=== PATIENT | female | born 1945 | race Caucasian/White ===

== ENCOUNTER 2016-06-03 13:38 | Inpatient (IN) | payer OTHER, MEDICARE ==
--- NOTE | 2016-06-03 14:38 | EDPHY ---
H & P Time Seen by Provider: 06/03/16 14:37 HPI/ROS: CHIEF COMPLAINT: Depression, here for ECT. HISTORY OF PRESENT ILLNESS: The patient is a 70-year-old female with a history of depression who presents from [place] to have ECT. She does not currently take anything for her depression and has not taken antidepressants for a few months as they did not work. Her depression symptoms have included sadness, crying, difficulty sleeping, and fatigue. She denies SI or HI. She denies recent sickness, cough, fever, vomiting. REVIEW OF SYSTEMS: A complete 10-point review of systems was performed and is negative except for those items mentioned in the HPI. Past Medical/Surgical History: Depression, spinal stenosis. Social History: Nonsmoker. Smoking Status: Never smoked Physical Exam: General Appearance: Alert, no distress Eyes: Pupils equal and round, no conjunctival pallor or injection ENT, Mouth: Mucous membranes moist Neck: Normal inspection Respiratory: Lungs are clear to auscultation Cardiovascular: Regular rate and rhythm Gastrointestinal: Abdomen is soft and non- tender Neurological: A&O, nonfocal, normal gait Skin: Warm and dry, no rash Extremities: Nontender, no pedal edema Psychiatric: Mood and affect normal Constitutional: Initial Vital Signs Temperature (C) 36.9 C 06/03/16 14:01 Heart Rate 93 06/03/16 14:01 Respiratory Rate 18 06/03/16 14:01 Blood Pressure 105/94 H 06/03/16 14:01 O2 Sat (%) 92 06/03/16 14:01 O2 Delivery Mode Room Air Allergies/Adverse Reactions: aripiprazole [From Abilify] Allergy (Verified 06/03/16 14:00) latex [Latex] Allergy (Verified 06/03/16 13:42) povidone-iodine [From Betadine] Allergy (Verified 06/03/16 13:42) soap [From Betadine] Allergy (Verified 06/03/16 13:42) Home Medications: Medication Instructions Recorded traZODone [traZODone 150MG (*)] 37.5 mg PO HS PRN 02/08/10 ARIPiprazole [Abilify 5 mg (*)] 5 mg PO DAILY 06/03/16 Fluticasone Nasal [Flonase Nasal 1 sprays NASAL DAILY 06/03/16 [place] (RX)] Hydrocodone/Acetaminophen [[place] 1 - 2 tab PO Q2-3PRN PRN 06/03/16 5/325 (*)] Medical Decision Making ED Course/Re-evaluation: An IV was established and labs ordered. EKG ordered. The patient has been accepted to and will be transferred when she is medically cleared. 1620: Patient medically cleared for psych evaluation. Differential Diagnosis: Differential diagnosis includes though it is not limited to suicidal ideation, overdose, acute psychosis, self-injury, alcohol withdrawal. - Data Points Laboratory Results: Laboratory Results 06/03/16 14:35 06/03/16 14:35 06/03/16 06/03/16 15:40 14:35 WBC 9.03 10^3/uL (3.80-9.50) RBC 4.85 10^6/uL (4.18-5.33) Hgb 15.6 g/dL (12.6-16.3) Hct 45.8 % (38.0-47.0) MCV 94.4 fL (81.5-99.8) MCH 32.2 pg (27.9-34.1) MCHC 34.1 g/dL (32.4-36.7) RDW 13.4 % (11.5-15.2) Plt Count 297 10^3/uL (150-400) MPV 9.3 fL (8.7-11.7) Neut % (Auto) 71.4 % (39.3-74.2) Lymph % (Auto) 17.7 % (15.0-45.0) [place] % (Auto) 7.9 % (4.5-13.0) Eos % (Auto) 1.3 % (0.6-7.6) Baso % (Auto) 0.8 % (0.3-1.7) Nucleat RBC Rel Count 0.0 % (0.0-0.2) Absolute Neuts (auto) 6.45 10^3/uL (1.70-6.50) Absolute Lymphs (auto) 1.60 10^3/uL (1.00-3.00) Absolute Monos (auto) 0.71 10^3/uL (0.30-0.80) Absolute Eos (auto) 0.12 10^3/uL (0.03-0.40) Absolute Basos (auto) 0.07 10^3/uL (0.02-0.10) Absolute Nucleated RBC 0.00 10^3/uL (0-0.01) Immature Gran % 0.9 % (0.0-1.1) Immature Gran # 0.08 10^3/uL (0.00-0.10) Sodium 145 H mEq/L (134-144) Potassium 4.1 mEq/L (3.5-5.2) Chloride 111 H mEq/L (97-110) Carbon Dioxide 22 mEq/l (22-31) Anion Gap 12 mEq/L (8-16) BUN 14 mg/dL (7-23) Creatinine 0.6 mg/dL (0.6-1.0) Estimated GFR > 60 Glucose 124 H mg/dL (70-100) Calcium 9.4 mg/dL (8.5-10.4) Urine Opiates Screen NEGATIVE (NEGATIVE) Urine Barbiturates NEGATIVE (NEGATIVE) Ur Phencyclidine Scrn NEGATIVE (NEGATIVE) Ur Amphetamine Screen NEGATIVE (NEGATIVE) U Benzodiazepines Scrn NON-NEGATIVE H (NEGATIVE) Urine Cocaine Screen NEGATIVE (NEGATIVE) U Marijuana (THC) Screen NEGATIVE (NEGATIVE) Ethyl Alcohol 10 mg/dL (0-10) Departure - Departure Disposition: [facility] IP Clinical Impression: Depression Qualifiers: Depression Type: unspecified Qualifier Code: (F32.9) Major depressive disorder , single episode, unspecified Condition: Fair Report Scribed for: Patti Domingo Report Scribed by: Seven Velasquez Date of Report: 06/03/16 Time of Report: 14:38 Physician Review and Approval Statement: 06/03/16 14:38 Portions of this note were transcribed by a biomedical specialist. I personally performed a history, physical exam, medical decision making, and confirmed accuracy of information the transcribed note.
[2016-06-03 14:53] LABS: % IMMATURE GRANULYOCYTES 0.9 % (0.0-1.1); ABSOLUTE IMMATURE GRANULOCYTES 0.08 10^3/uL (0.00-0.10); ADD DIFF? NO; ADD MORPH? NO; ADD SCAN? NO; ATYPICAL LYMPHOCYTE FLAG 0 (0-99); FRAGMENT RBC FLAG 0 (0-99); HEMATOCRIT 45.8 % (38.0-47.0); HEMOGLOBIN 15.6 g/dL (12.6-16.3); LEFT SHIFT FLG 0 (0-99); LIPEMIA HEMOLYSIS FLAG 90 (0-99); MEAN CELL HEMOGLOBIN 32.2 pg (27.9-34.1); MEAN CELL HEMOGLOBIN CONCENTR. 34.1 g/dL (32.4-36.7); MEAN CELL VOLUME 94.4 fL (81.5-99.8); MEAN PLATELET VOLUME 9.3 fL (8.7-11.7); PLATELET CLUMPS FLAG 0 (0-99); PLATELET COUNT 297 10^3/uL (150-400); RED BLOOD CELL COUNT 4.85 10^6/uL (4.18-5.33); RED CELL DISTRIBUTION WIDTH 13.4 % (11.5-15.2)
[2016-06-03 15:19] LABS: ANION GAP 12 mEq/L (8-16); CALCIUM 9.4 mg/dL (8.5-10.4); CARBON DIOXIDE 22 mEq/l (22-31); CHLORIDE 111 mEq/L (97-110); CREATININE 0.6 mg/dL (0.6-1.0); ETHANOL SERUM 10 mg/dL (0-10); GLOMERULAR FILTRATION RATE > 60; GLUCOSE 124 mg/dL (70-100); POTASSIUM 4.1 mEq/L (3.5-5.2); SODIUM 145 mEq/L (134-144)
--- NOTE | 2016-06-03 15:21 | CPEKG ---
Heart Rate: 88 RR Interval: 682 P-R Interval: 184 QRSD Interval: 96 QT Interval: 388 QTC Interval: 470 P [place]: 49 QRS [place]: 11 T Wave [place]: 46 EKG Severity - NORMAL ECG - EKG Impression: SINUS RHYTHM Electronically Signed By: Patti Domingo 03-Jun-2016 21:24:02
[2016-06-03] MEDS ORDERED: MAGNESIUM HYDROXIDE 30 ML UDCUP PO PRN (20:55)
[2016-06-03] MEDS ORDERED: MAG HYDROX/AL HYDROX/SIMETH 30 ML UDCUP PO PRN (20:55)
[2016-06-03] MEDS ORDERED: HYDROCODONE/APAP 5/325 TAB PO PRN (20:56)
[2016-06-03] MEDS ORDERED: traZODone 50 MG TAB PO PRN (20:56)
[2016-06-03] MEDS: FLUTICASONE NASAL 120 SPRAYS/16 GM MDI EACHNARE SCH (21:39)
[2016-06-03] MEDS ORDERED: traZODone 50 MG TAB PO ONE (23:30)
[2016-06-04] MEDS: FLUTICASONE NASAL 120 SPRAYS/16 GM MDI EACHNARE SCH (08:29)
[2016-06-04] MEDS: LORazepam 0.5 MG TAB PO PRN ×2 (11:16→14:48)
[2016-06-04] MEDS: ACETAMINOPHEN 325 MG TAB PO PRN (15:43)
--- NOTE | 2016-06-04 18:00 | BCON ---
[f rep st] BEHAVIORAL HEALTH CONSULTATION INTERNAL MEDICINE CONSULTATION DATE OF CONSULTATION: 06/04/2016 REFERRING PHYSICIAN: Edgar Bonilla MD REASON FOR CONSULTATION: Medical clearance for inpatient behavioral health stay. HISTORY OF PRESENT ILLNESS: Mrs. Duarn has come from [place] for electroconvulsive therapy to treat depression, which has been refractory to medications. She currently complains of neck and shoulder pain, and reports a history of cervical spinal stenosis and surgery approximately 2 months ago. She reports [place], which she has been taking, was ineffective for pain control and is hoping that there is something stronger. Otherwise, she has no acute medical complaints. PAST MEDICAL HISTORY: 1. Depression, refractory to medications. 2. Cervical spinal stenosis. 3. Right leg fractures due to a fall from a chair. 4. History of a knee fracture. PAST SURGICAL HISTORY: She had surgery for cervical spinal stenosis approximately 2 months ago and she has had a surgical repair of the right lower extremity. MEDICATIONS: 1. Hydrocodone/acetaminophen 5/325, 1-2 tabs p.o. q.2-3 hours p.r.n. 2. Fluticasone 1 spray each naris daily. 3. Trazodone 37.5 mg p.o. q.h.s. p.r.n. ALLERGIES: Listed to aripiprazole, latex, and povidone iodine. SOCIAL HISTORY: She is . She lives with her . She has 3 children, including a son in [place], and 2 other children in [place]. She comes from [place]. 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 She is a nonsmoker and uses occasional alcohol. FAMILY HISTORY: Noncontributory. REVIEW OF SYSTEMS: She denies cough or dyspnea, fevers chills, nausea, vomiting , diarrhea, diarrhea, and no constipation despite pain medicine with opiates. She denies dysuria. Pain is as described in the HPI and otherwise, a 10-point review of systems is negative. PHYSICAL EXAM: VITAL SIGNS: Blood pressure is 159/72. Earlier on when she first arrived, it was 105/94 and subsequently, 110/84. These were yesterday and then yesterday evening 164/92. Heart rate is 90, respiratory rate is 16, oxygen saturation is 90% on room air, temperature is 36.6 degrees centigrade. Her weight is 61.2 kg for a body mass index of 23.9. GENERAL: This is a well- nourished, well-developed woman appears her chronologic age, cooperative, and in no acute distress. HEENT: Extraocular movements are intact. Pupils are equal, round, and reactive to light. Mucous membranes are moist. Dentition is in good condition. NECK: Supple. HEART: There is a regular rate and rhythm with no murmurs, rubs, or gallops. LUNGS: Clear to auscultation bilaterally. ABDOMEN: Soft, nontender, nondistended with normoactive bowel sounds. EXTREMITIES: There is no cyanosis, clubbing, or edema. She is tender over the right trapezius close to the spine. NEUROLOGIC: She is alert. She is oriented to her location. She is disoriented to the month and the year, reporting the date as May 04, 2016. After reorientation, she is able to retain the date of June 04 however, she repeats 2015. Cranial nerves 2-12 are grossly intact. There is no focal weakness. Sensation is intact to light touch. Her gait is abnormal using a front-wheeled walker, wide-based and very slow with en bloc turning, but this might be due to her management of the walker. LABORATORY STUDIES: Drawn in the emergency room: CBC was completely within normal limits. Serum chemistry revealed a slightly high sodium at 145 and a slightly high chloride at 111. There was no significant anion gap. She potentially had some dehydration with a BUN to creatinine ratio being greater than 20. The BUN was 14 and the creatinine was 0.6. Serum glucose was elevated at 124, but this was likely not fasting. Toxicology screen in the serum was negative for ethyl alcohol, in the urine was non-negative for benzodiazepines, but otherwise negative for substances of abuse. IMAGING: EKG was obtained in the emergency department and it showed sinus rhythm with no abnormalities. ASSESSMENT AND RECOMMENDATIONS: 1. Mental health issues: Pending further evaluation and management presumably with electroconvulsive therapy per Psychiatry and the mental health team. 2. Osteoporosis: She reports a bone scan was consistent with osteopenia however, she had a low-level fall with multiple fractures, so she meets criteria for osteoporosis. She reports that she takes vitamin D. I have ordered a vitamin D supplement to be given, and I have advised her that she would likely benefit from medications to improve her bone strength. She can take this up with her primary care provider. It is very important that she avoid falling. 3. Abnormal gait: Physical Therapy evaluation has been ordered and this should also help to prevent falls. 4. Memory loss with disorientation as to date: She is about to undergo electroconvulsive therapy with likely worsening memory loss in the short-term period after therapies. Memory loss might also be due to her depression. Advised consideration of a Speech Therapy consult for cognitive evaluation. 5. Elevated blood pressure: Query whether this is related to pain or anxiety. Advise serial monitoring and would consider initiating antihypertensive therapy if her blood pressure remains elevated. A thiazide diuretic would be particularly appropriate in the setting of osteoporosis as it helps retain calcium. 6. Hypernatremia, mild, and possible dehydration. Observe for normal fluid intake. Will not repeat labs unless she is symptomatic. I see no medical contraindications to the patient's continued stay in the inpatient behavioral health unit, or to any psychiatric medications or procedures. Thank you very much for including me in the care of this patient, and please do not hesitate to contact me or the hospitalist service should there be need for further medical evaluation. /[id number]/MODL MTDD
--- NOTE | 2016-06-04 18:00 | BAPA ---
[f rep st] ADMISSION PSYCHIATRIC ASSESSMENT DATE OF SERVICE: 06/04/2016 CHIEF COMPLAINT: "I want to have ECT because nothing else has ever worked." HISTORY OF PRESENT ILLNESS: Patient is a 70-year-old, female, from [facility] who was brought over by her due to lack of responsiveness to her antidepressant treatment. She has a long history of treatment resistant depression dating over 50 years. During this time she states she has failed "every antidepressant there is." She is managed by Dr. Avendano in [facility], who was worked with her for some time and provides a letter of referral. He states that he has treated her since December of 2005 and that she has refractory depression. He notes significant functi onal disorder and impairment due to her symptoms and states that he attempted a course of TMS from to January of 2016 that was unsuccessful. She had some movement on her PHQ though overall mary nued to feel depressed. She received 31 treatments over approximately 6 weeks. Patient states that she believes her depression will never improve and notes primary neurovegetative dysfunction includin g poor energy and motivation feeling lethargic, excessive sleepiness both at nighttime and during the day alternating with some periods of relative insomnia. She notes feeling depressed more days than not and states "I am always sad, I can not do anything." She has frequent crying episodes and feels helpless and hopeless. She notes some variation in her overall functioning over time with periods du ring which she could be more active and possibly play tennis or bridge with friends or socialize but states that these are relatively brief and they are alternating with periods of severe depression whe re she will isolate more and sleep excessively. She states that she has been unable to properly atte nd her roles within her family for some time and questions whether she ever was adequately able to do this through her lifetime. She notes currently some memory dysfunction, stating that she is having trouble with recall but is adamant this is not her standard baseline. PAST PSYCHIATRIC HISTORY: Patient had multiple previous antidepressant trials including Prozac, Paxi l, Zoloft, Celexa, Lexapro, Effexor, Cymbalta, Pristiq, Lamictal, Remeron, Ritalin, Wellbutrin, Provi kathryn, lithium, Abilify, nortriptyline, and possibly amitriptyline. She has had psychotherapy off and on which she states has been helpful. She had the 31 TMS treatments as mentioned above. She has had 1 previous psychiatric hospitalization in 2003 in [place] due to increased depression and psyc hosocial stresses. She has had no previous suicide attempts. When asked about suicidality she state s "I do not think about that much." She does state however that she cannot imagine her life continui ng how it is. ALLERGIES: Abilify with a rash, latex and iodine. CURRENT MEDICATIONS: Trazodone 150 mg at h.s. Flonase nasal spray. Though it is unclear if she was recently taking Paxil or not. She believes not. She did list it on her paperwork [facility] She was also recently on Abilify though states that this caused her a rash and they discontinued it. PAST MEDICAL HISTORY: Significant for some fractures in her right lower leg about 2 years ago. She states that this affected her walking. She did not have surgery but has been dependent on a walker s vicky that time. She was told that she had a "low thyroid" in the past though states she has not been treated for several years. She denies any history of central nervous system disease including any b rain injuries or seizures. She reports no history of sleep apnea. PAST SURGICAL HISTORY: Patient had anterior cervical fusion 2 months ago and some remote spinal surg anette. SOCIAL HISTORY: Patient was born and raised in [place] and lived there most of her life. She mov ed to [place] with her 10 years ago to retire. She has been for over 50 years with 3 children. She has a daughter in [place], a daughter in [place], and a son who lives in [place]. She states that her son in [place] is a "drug addict and a lost soul." It is noted by her and also Dr. Avendano that the son's behaviors and difficulties are a frequent source of confl ict between the patient and her . Patient has a sister in [place] and a nephew who also tej es in [place]. She has a BA in history and Polish and a secondary education credential. 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 SUBSTANCE ABUSE HISTORY: Patient states she started drinking alcohol 10 years ago when she moved to [place] "because I was so miserable." She states she was drinking up to daily "too much." She repo rts quitting about a month ago. Denies any other history of drug use. FAMILY HISTORY: Father was an alcoholic and her mother was reportedly depressed. ADMISSION LABORATORY: CBC is normal. Serum chemistry shows sodium slightly up at 145, chloride of 1 11, nonfasting glucose up at 124, otherwise normal. TSH not drawn. Urine drug screen is positive fo r benzodiazepines and alcohol level was 10. MENTAL STATUS EXAMINATION: Reveals a marginally groomed, casually dressed, female. She in teracts well with the interviewer displaying good eye contact and overall calm and pleasant demeanor. She perhaps demonstrates a slight level of psychomotor retardation. Her affect is blunted, dysphor ic, stable, and appropriate. Her mood is described as "really depressed and sad." Her thought proce ss is linear and goal directed. Her thought content reveals no evidence of psychosis. She is alert and oriented to person, place, time, and situation and her sensorium is clear. She seems to have tro uble with some recall in her remote and intermediate memories. This is fairly unclear and inconsiste nt and she states that it is due to her trouble with attention and concentration, which she refers to her depression. There are no gross cognitive deficits noted. Her attention and concentration are a dequate to the conversation. Patient's intellect appears to be at least average as evidenced by her educational and occupational histories, fund of knowledge, and vocabulary. She denies any thoughts o f suicide. Her insight and judgment appear to be good. IMPRESSION: AXIS I: Major depressive disorder, recurrent, chronic with treatment resistant features . AXIS II: No diagnosis. AXIS III: No acute illnesses. AXIS IV: Chronic illness. Possible marital conflicts. Family conflicts. AXIS V: Currently 38. IMPRESSION AND PLAN: Patient is a 70-year-old, female, who presents for admission to be ev aluated for treatment resistant depression. She voices a desire to participate with ECT and her outp atient provider, Dr. Avendano, has also recommended this. I believe that she meets criteria for treat ment resistant depression and I find no absolute contraindications. She has a predominance of neurov egetative symptoms which are likely to respond and I believe the overall severity and long-term disab ility of her condition warrants treatment. I have discussed this with the patient. She states that she is motivated to begin ECT treatment as soon as possible. I am not satisfied that I have her abso lute current medication list and put a message into Dr. Avendano so we will clarify that prior to begi nning treatment. I have discussed with the patient that our main alternative to ECT at this time is ongoing medication management. Overall given her current severity of symptoms and her previous treatment responses I h ave indicated an approximately 16%-18% chance of reaching remission with further medication trials. I have also indicated a 55%-60% chance of remission with ECT. We discussed the course of ECT treatments including the acute course which is performed here at [facility] on a Friday, Friday, Friday basis. She understands the typical range of treat ments in the acute course is between 9 and 12 though this could be longer. She also understands that continuation treatment on a weekly basis is necessary to prevent immediate relapse, and longer-term maintenance therapy may be indicated depending on clinical course. She understands that there is no guarantee ECT will be effective. We discussed the extremely rare, rare, uncommon and common side effects with ECT including major risk s such as occurring in 1 in 10,000 and possible risks to the cardiovascular and central nervous systems. Side effects such as nausea, headaches and agitation were also discussed. Particular time was spent discussing transient and persistent cognitive side effects of ECT. Side effects such as a nterograde, retrograde and autobiographical memory deficiencies were reviewed. Specific focus was gi robert to her ongoing problems with attention, concentration, working memory, short-term memory, and kit n intermediate recall. I informed her that ECT effects these specific functions as well as in that t hey could worsen during treatment. I stated that overall I would expect them to improve through the course of treatment. Patient understands behavior restrictions requisite with ECT including n.p.o. requirements and time f rakel, 24 monitoring on treatment days, no driving during the acute phase of treatment or on any gamaliel tment day. She also states that she may do much of her acute course in the hospital. Patient is given a packet of ECT educational materials though states she has already reviewed them. She does take the pack and states she will re-review them. She will let me know if she has any quest ions. I was able to talk briefly with her this morning and he had no questions. /[id number]/MODL
[2016-06-05] MEDS ORDERED: CITRIC ACID/SODIUM CITRATE 30 ML UDCUP PO ONE (08:00)
[2016-06-05] MEDS ORDERED: LIDOCAINE 2% 5 ML SDV ID ONE (08:00)
[2016-06-05] MEDS ORDERED: ONDANSETRON DISINTEGRATING 4 MG TAB PO ONE (08:00)
[2016-06-05] MEDS ORDERED: NS 500 ML IV ONE (08:00)
[2016-06-05] MEDS: FLUTICASONE NASAL 120 SPRAYS/16 GM MDI EACHNARE SCH (08:22)
[2016-06-05] MEDS: CHOLECALCIFEROL VIT D3 2,000 UNITS TAB/CAP PO SCH (08:23)
[2016-06-05] MEDS ORDERED: ONDANSETRON DISINTEGRATING 4 MG TAB ONE (13:35)
[2016-06-05] MEDS ORDERED: CITRIC ACID/SODIUM CITRATE 30 ML UDCUP ONE (13:35)
[2016-06-05] MEDS ORDERED: fentaNYL 100 MCG/2 ML INJ ONE (13:58)
[2016-06-05] MEDS ORDERED: ETOMIDATE 20 MG/10 ML VIAL ONE (13:59)
[2016-06-05] MEDS ORDERED: SUCCINYLCHOLINE CHLORIDE 200 MG/10 ML VIAL ONE (13:59)
[2016-06-05] MEDS ORDERED: ROCURONIUM 50 MG/5 ML VIAL ONE (13:59)
[2016-06-05] MEDS ORDERED: KETOROLAC 30 MG/1 ML SDV ONE (13:59)
[2016-06-05] MEDS ORDERED: MIDAZOLAM 2 MG/2 ML VIAL ONE (13:59)
[2016-06-05] MEDS ORDERED: ONDANSETRON 4 MG/2 ML VIAL ONE (13:59)
[2016-06-05] MEDS ORDERED: GLYCOPYRROLATE 0.2 MG/1 ML VIAL ONE (13:59)
--- NOTE | 2016-06-05 21:40 | SOAPPROG ---
SOAP Progress Note Assessment/Plan: Assessment: Plan: 06/05/16 21:40 Good first treatment. Some respiratory issues. Will pierre. Subjective: Pt seen, discussed with staff. I answered her questions re: ECT. Underwent bilateral treatment with good organization, morphology, amplitude and duration. No initial complications. She was slow to wake up and was unable to maintain sats >90% on RA. Dr. Oroczo evaluated pt and referred to ED for further eval due to wheezing. CXR reportedly nl. Sats nl in ED. Returned to 3N. Objective: Vital Signs Temp Pulse Resp BP Pulse Ox 36.5 C 83 14 135/70 H 91 L 06/05/16 21:14 06/05/16 21:14 06/05/16 21:14 06/05/16 21:14 06/05/16 21:14 MSE: Anxious, but approp. Affect o/w constricted, stable. Mood "depressed." TP linear. TC reveals no psychosis. - Time Spent With Patient Time Spent With Patient: 45" - Pending Discharge Pending Discharge Within 24 Hours: No Pending Discharge Within 48 Hours: No ICD10 Worksheet Patient Problems: Problems Problem Status Diagnosed Depression Acute Hypoxia Acute
[2016-06-06] MEDS ORDERED: IBUPROFEN 800 MG TAB PO ONE (01:00)
[2016-06-06] MEDS: LORazepam 0.5 MG TAB PO PRN (04:52)
[2016-06-06] MEDS: FLUTICASONE NASAL 120 SPRAYS/16 GM MDI EACHNARE SCH (08:29)
[2016-06-06] MEDS: CHOLECALCIFEROL VIT D3 2,000 UNITS TAB/CAP PO SCH (08:30)
[2016-06-06] MEDS: LORazepam 1 MG TAB PO PRN ×2 (13:17→17:41)
--- NOTE | 2016-06-07 00:37 | SOAPPROG ---
SOAP Progress Note Assessment/Plan: Assessment: Plan: 06/05/16 21:40 Good first treatment. Some respiratory issues. Will montor. 06/07/16 00:36 Remains depressed. Tolerating ECT well. CCM. Subjective: LATE ENTRY FOR 06/06/16 Pt seen, discussed with staff. Sats low after treatment yesterday, w/u negative in ED. No c/o's despite need for O2 overnight. Some h/a resolved with ibuprofen. Upbeat and hopeful. Objective: Vital Signs Temp Pulse Resp BP Pulse Ox 36.4 C 80 16 120/65 90 L 06/06/16 00:54 06/06/16 10:40 06/06/16 00:54 06/06/16 00:54 06/06/16 10:40 MSE: Calm, coop. Affect is bright, stable, approp. Mood is "depressed." TP linear. TC reveals no psychosis. - Time Spent With Patient Time Spent With Patient: 15" - Pending Discharge Pending Discharge Within 24 Hours: No Pending Discharge Within 48 Hours: No ICD10 Worksheet Patient Problems: Problems Problem Status Diagnosed Depression Acute
[2016-06-07] MEDS ORDERED: THEOPHYLLINE ORAL SOLUTION 80 MG/15 ML UDCUP PO ONE (04:00)
[2016-06-07] MEDS ORDERED: CITRIC ACID/SODIUM CITRATE 30 ML UDCUP PO ONE (04:00)
[2016-06-07] MEDS ORDERED: LIDOCAINE 2% 5 ML SDV ID ONE (04:00)
[2016-06-07] MEDS ORDERED: ONDANSETRON DISINTEGRATING 4 MG TAB PO ONE (04:00)
[2016-06-07] MEDS ORDERED: NS 500 ML IV ONE (04:00)
[2016-06-07] MEDS ORDERED: fentaNYL 100 MCG/2 ML INJ ONE (05:08)
[2016-06-07] MEDS ORDERED: ONDANSETRON 4 MG/2 ML VIAL ONE (05:09)
[2016-06-07] MEDS ORDERED: SUCCINYLCHOLINE CHLORIDE 200 MG/10 ML VIAL ONE (05:09)
[2016-06-07] MEDS ORDERED: ROCURONIUM 50 MG/5 ML VIAL ONE (05:09)
[2016-06-07] MEDS ORDERED: GLYCOPYRROLATE 0.2 MG/1 ML VIAL ONE (05:09)
[2016-06-07] MEDS ORDERED: KETOROLAC 30 MG/1 ML SDV ONE (05:09)
[2016-06-07] MEDS ORDERED: ETOMIDATE 20 MG/10 ML VIAL ONE (05:09)
[2016-06-07] MEDS ORDERED: MIDAZOLAM 2 MG/2 ML VIAL ONE (05:09)
[2016-06-07] MEDS ORDERED: CITRIC ACID/SODIUM CITRATE 30 ML UDCUP ONE (06:06)
[2016-06-07] MEDS ORDERED: ONDANSETRON DISINTEGRATING 4 MG TAB ONE (06:06)
[2016-06-07] MEDS: FLUTICASONE NASAL 120 SPRAYS/16 GM MDI EACHNARE SCH (10:11)
[2016-06-07] MEDS: CHOLECALCIFEROL VIT D3 2,000 UNITS TAB/CAP PO SCH (10:11)
--- NOTE | 2016-06-07 14:17 | SOAPPROG ---
SOAP Progress Note Assessment/Plan: Assessment: Plan: 06/05/16 21:40 Good first treatment. Some respiratory issues. Will montor. 06/07/16 00:36 Remains depressed. Tolerating ECT well. CCM. 06/07/16 14:18 Tolerating treatments well. CCM. Subjective: Pt seen, discussed with staff. Reports feeling "about the same." H/a and nausea were less after last treatment. Mood remains low. She underwent bilateral ECT this morning without complication. O2 sats on RA were 86% before treatment. Objective: Vital Signs Temp Pulse Resp BP Pulse Ox 36.6 C 70 14 144/72 H 92 06/07/16 10:45 06/07/16 10:45 06/07/16 10:45 06/07/16 10:45 06/07/16 10:45 MSE: Calm, coop. Affect is blunted, stable. Mood is "depressed." TP linear. TC reveals no psychosis. A&Ox4. Cognition unchanged. - Time Spent With Patient Time Spent With Patient: 35" - Pending Discharge Pending Discharge Within 24 Hours: No Pending Discharge Within 48 Hours: No ICD10 Worksheet Patient Problems: Problems Problem Status Diagnosed Depression Acute
[2016-06-07] MEDS: oxyCODONE IR 5 MG TAB PO PRN (15:45)
[2016-06-08] MEDS: LORazepam 1 MG TAB PO PRN ×2 (04:15→14:59)
[2016-06-08] MEDS: CHOLECALCIFEROL VIT D3 2,000 UNITS TAB/CAP PO SCH (08:19)
[2016-06-08] MEDS: FLUTICASONE NASAL 120 SPRAYS/16 GM MDI EACHNARE SCH (08:19)
--- NOTE | 2016-06-08 11:08 | SOAPPROG ---
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 She has had 2 treatments so far. Plan:add prn Trazedone for middle insomnia con't other meds ECT 06/10/16 06/08/16 11:05 Subjective: "Tired. I couldn't get back to sleep last night." Objective: Vital Signs Temp Pulse Resp BP Pulse Ox 36.8 C 66 12 142/77 H 92 06/08/16 04:32 06/08/16 04:32 06/08/16 04:32 06/08/16 04:32 06/08/16 04:32 Pt is A+O x4 using walker mood-"tired" affect-appr thoughts-logical speech-wnl +middle insomnia appetite-good no S/H I no A/V H no sx psychosis/se no SASCHA memory-fair I/J-good - Time Spent With Patient Time Spent With Patient: 20' - Pending Discharge Pending Discharge Within 24 Hours: No Pending Discharge Within 48 Hours: No ICD10 Worksheet Patient Problems: Problems Problem Status Diagnosed Depression Acute
[2016-06-09] MEDS: CHOLECALCIFEROL VIT D3 2,000 UNITS TAB/CAP PO SCH (08:55)
[2016-06-09] MEDS: FLUTICASONE NASAL 120 SPRAYS/16 GM MDI EACHNARE SCH (08:55)
[2016-06-09] MEDS: LORazepam 1 MG TAB PO PRN (09:00)
[2016-06-09] MEDS: oxyCODONE IR 5 MG TAB PO PRN (10:35)
--- NOTE | 2016-06-09 11:05 | SOAPPROG ---
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 She has had 2 treatments so far. 06/09/16-pt had explosive diarrhea this am and needed extra pain med-now feeling better but c/o feeling "tired" Plan:added prn Trazedone for middle insomnia con't other meds ECT 06/10/16 06/09/16 12:14 Subjective: "Tired." Objective: Vital Signs Temp Pulse Resp BP Pulse Ox 36.3 C 69 14 138/76 H 91 L 06/09/16 06:14 06/09/16 06:14 06/09/16 06:14 06/09/16 06:14 06/09/16 06:14 Pt is A+O x4 mood-"tired" affect-appr no S/H I no A/V H thoughts-logical speech-wnl slept 8.5 hours no sx psychosis/se no SASCHA memory-fair I/J-good - Time Spent With Patient Time Spent With Patient: 20' - Pending Discharge Pending Discharge Within 24 Hours: No Pending Discharge Within 48 Hours: No ICD10 Worksheet Patient Problems: Problems Problem Status Diagnosed Depression Acute
[2016-06-10] MEDS ORDERED: MIDAZOLAM 2 MG/2 ML VIAL ONE (05:57)
[2016-06-10] MEDS ORDERED: fentaNYL 100 MCG/2 ML INJ ONE (05:57)
[2016-06-10] MEDS ORDERED: GLYCOPYRROLATE 0.2 MG/1 ML VIAL ONE (05:57)
[2016-06-10] MEDS ORDERED: ONDANSETRON 4 MG/2 ML VIAL ONE (05:57)
[2016-06-10] MEDS ORDERED: KETOROLAC 30 MG/1 ML SDV ONE (05:57)
[2016-06-10] MEDS ORDERED: PROPOFOL 200 MG/20 ML VIAL ONE (05:58)
[2016-06-10] MEDS ORDERED: SUCCINYLCHOLINE CHLORIDE 200 MG/10 ML VIAL ONE (05:58)
[2016-06-10] MEDS ORDERED: ETOMIDATE 20 MG/10 ML VIAL ONE (05:58)
[2016-06-10] MEDS ORDERED: ROCURONIUM 50 MG/5 ML VIAL ONE (05:58)
[2016-06-10] MEDS ORDERED: ONDANSETRON DISINTEGRATING 4 MG TAB ONE (07:32)
[2016-06-10] MEDS ORDERED: CITRIC ACID/SODIUM CITRATE 30 ML UDCUP ONE (07:32)
[2016-06-10] MEDS ORDERED: ONDANSETRON DISINTEGRATING 4 MG TAB PO PRN (08:10)
--- NOTE | 2016-06-10 08:17 | SOAPPROG ---
SOAP Progress Note Assessment/Plan: Assessment: MDD (treatment resistant), Plan: Covering for Dr Bonilla just today. Reviewed MD, RN AND CC notes, labs, and H and P. s/p ECT #3 today with nice decline in mccarthy score to 21 from 39. However , pt has little subjective appreciation of change. Able to smile and make adequate eye contact, yet impov. in speech and with constricted affect. APpears to have STM issues, not recalling Dr Orozco. Insight seems impaired. Will check organic labs given her age and cognition issues: B12, folate, MTHFR, TSH, 25-OH Vit D. Also, pt does have O2 sats in the low 90s, history of snoring and other symptoms that could be c/w ANNALISA (but of course also c/w her depression itself.) Will ask for RT consult and bedside pulsoximetry. COnt acute bilateral ECT. Ketamine discussed with pt as she was astute enough to ask whether or not we were using it for her. 06/10/16 08:11 Objective: Vital Signs Temp Pulse Resp BP Pulse Ox 36.4 C 70 14 113/66 92 06/10/16 06:44 06/10/16 06:44 06/10/16 06:44 06/10/16 06:44 06/10/16 06:44 Laboratory Tests 06/03/16 06/03/16 14:35 15:40 Hct 45.8 Calcium 9.4 U Benzodiazepines Scrn NON-NEGATIVE H ICD10 Worksheet Patient Problems: Problems Problem Status Diagnosed Depression Acute
[2016-06-10] MEDS: FLUTICASONE NASAL 120 SPRAYS/16 GM MDI EACHNARE SCH (10:14)
[2016-06-10] MEDS: CHOLECALCIFEROL VIT D3 2,000 UNITS TAB/CAP PO SCH (10:14)
[2016-06-11 03:22] LABS: FOLATE SERUM 7.95 ng/mL (2.80 - >20.00)
[2016-06-11] MEDS: oxyCODONE IR 5 MG TAB PO PRN (06:01)
[2016-06-11] MEDS: CHOLECALCIFEROL VIT D3 2,000 UNITS TAB/CAP PO SCH (08:57)
[2016-06-11] MEDS: FLUTICASONE NASAL 120 SPRAYS/16 GM MDI EACHNARE SCH (08:57)
--- NOTE | 2016-06-11 11:11 | SOAPPROG ---
SOAP Progress Note Assessment/Plan: Assessment: Plan: 06/05/16 21:40 Good first treatment. Some respiratory issues. Will montor. 06/07/16 00:36 Remains depressed. Tolerating ECT well. CCM. 06/07/16 14:18 Tolerating treatments well. CCM. 06/11/16 11:10 Objective improvement exceeds subjective which is common. CCM. Subjective: Pt seen, discussed with staff, chart reviewed. Dr. Corea's input appreciated. Labs all nl thus far. Pt reports little subjective improvement in early acute course though staff note objective improvement. Tolerating treatments well. Objective: Vital Signs Temp Pulse Resp BP Pulse Ox 36.5 C 78 14 149/78 H 90 L 06/11/16 06:00 06/11/16 06:00 06/11/16 06:00 06/11/16 06:00 06/11/16 06:00 MSE: Calm, coop. Up in [place] with walker. Affect is brighter, smiling. Mood is "depressed." TP linear. TC reveals no psychosis. A&Ox4. - Time Spent With Patient Time Spent With Patient: 35" - Pending Discharge Pending Discharge Within 24 Hours: No Pending Discharge Within 48 Hours: No ICD10 Worksheet Patient Problems: Problems Problem Status Diagnosed Depression Acute
[2016-06-11 12:36] LABS: VITAMIN D 25-HYDROXY TOTAL 22.6 ng/mL (30-100)
[2016-06-12] MEDS: traZODone 100 MG TAB PO PRN (02:13)
[2016-06-12] MEDS ORDERED: NS 500 ML IV ONE (04:00)
[2016-06-12] MEDS ORDERED: LIDOCAINE 2% 5 ML SDV ID ONE (04:00)
[2016-06-12] MEDS ORDERED: CITRIC ACID/SODIUM CITRATE 30 ML UDCUP PO ONE (04:00)
[2016-06-12] MEDS ORDERED: ONDANSETRON DISINTEGRATING 4 MG TAB PO ONE (04:00)
[2016-06-12] MEDS ORDERED: MIDAZOLAM 2 MG/2 ML VIAL ONE (04:50)
[2016-06-12] MEDS ORDERED: GLYCOPYRROLATE 0.2 MG/1 ML VIAL ONE (04:50)
[2016-06-12] MEDS ORDERED: KETOROLAC 30 MG/1 ML SDV ONE (04:50)
[2016-06-12] MEDS ORDERED: ONDANSETRON 4 MG/2 ML VIAL ONE (04:50)
[2016-06-12] MEDS ORDERED: fentaNYL 100 MCG/2 ML INJ ONE (04:50)
[2016-06-12] MEDS ORDERED: SUCCINYLCHOLINE CHLORIDE 200 MG/10 ML VIAL ONE (04:51)
[2016-06-12] MEDS ORDERED: ROCURONIUM 50 MG/5 ML VIAL ONE (04:51)
[2016-06-12] MEDS ORDERED: ETOMIDATE 20 MG/10 ML VIAL ONE (04:51)
[2016-06-12] MEDS ORDERED: THEOPHYLLINE ORAL SOLUTION 80 MG/15 ML UDCUP PO ONE (05:30)
[2016-06-12] MEDS ORDERED: ONDANSETRON DISINTEGRATING 4 MG TAB ONE (06:12)
[2016-06-12] MEDS ORDERED: CITRIC ACID/SODIUM CITRATE 30 ML UDCUP ONE (06:12)
[2016-06-12] MEDS: FLUTICASONE NASAL 120 SPRAYS/16 GM MDI EACHNARE SCH (09:01)
[2016-06-12] MEDS: CHOLECALCIFEROL VIT D3 2,000 UNITS TAB/CAP PO SCH (09:02)
--- NOTE | 2016-06-12 12:34 | SOAPPROG ---
SOAP Progress Note Assessment/Plan: Assessment: Plan: 06/05/16 21:40 Good first treatment. Some respiratory issues. Will chepeor. 06/07/16 00:36 Remains depressed. Tolerating ECT well. CCM. 06/07/16 14:18 Tolerating treatments well. CCM. 06/11/16 11:10 Objective improvement exceeds subjective which is common. CCM. 06/12/16 12:33 Continued gradual improvement. CCM. Subjective: Pt seen, discussed with staff. Reports feeling "about the same." Mood remains flat and she continues to c/o poor E/M. Underwent bilateral ECT this morning with good seizure and no complications. Objective: Vital Signs Temp Pulse Resp BP Pulse Ox 36.5 C 73 16 180/94 H 90 L 06/12/16 08:24 06/12/16 08:24 06/12/16 07:50 06/12/16 08:24 06/12/16 08:46 MSE: Calm, coop. Affect is brighter, smiling frequently. Mood is "depressed, no different." TP linear. TC reveals no psychosis. - Time Spent With Patient Time Spent With Patient: 35" - Pending Discharge Pending Discharge Within 24 Hours: No Pending Discharge Within 48 Hours: No ICD10 Worksheet Patient Problems: Problems Problem Status Diagnosed Depression Acute
[2016-06-12] MEDS: LORazepam 1 MG TAB PO PRN ×2 (15:32→20:48)
[2016-06-13] MEDS: CHOLECALCIFEROL VIT D3 2,000 UNITS TAB/CAP PO SCH (08:30)
[2016-06-13] MEDS: FLUTICASONE NASAL 120 SPRAYS/16 GM MDI EACHNARE SCH (08:31)
[2016-06-13] MEDS: LORazepam 1 MG TAB PO PRN (11:37)
[2016-06-13] MEDS ORDERED: LIDOCAINE 2% 5 ML SDV ID ONE (11:41)
[2016-06-13] MEDS ORDERED: CITRIC ACID/SODIUM CITRATE 30 ML UDCUP PO ONE (11:41)
[2016-06-13] MEDS ORDERED: NS 500 ML IV ONE (11:41)
[2016-06-13] MEDS ORDERED: ONDANSETRON DISINTEGRATING 4 MG TAB PO ONE (11:41)
--- NOTE | 2016-06-13 11:54 | SOAPPROG ---
SOAP Progress Note Assessment/Plan: Assessment: Plan: 06/05/16 21:40 Good first treatment. Some respiratory issues. Will chepeor. 06/07/16 00:36 Remains depressed. Tolerating ECT well. CCM. 06/07/16 14:18 Tolerating treatments well. CCM. 06/11/16 11:10 Objective improvement exceeds subjective which is common. CCM. 06/12/16 12:33 Continued gradual improvement. [facility]. 06/13/16 11:55 Continued objective improvement. CCM. Will discuss potential antidepressants with Dr. Avendano. Subjective: Pt seen, discussed with staff. Reports feeling "about the same." Mood remains low. C/o poor energy and motivation. Requests to restart an antidepressant. Objective: Vital Signs Temp Pulse Resp BP Pulse Ox 36.6 C 71 12 154/71 H 92 06/13/16 06:00 06/13/16 06:00 06/13/16 06:00 06/13/16 06:00 06/13/16 06:00 MSE: Calm, coop. Affect is blunted, stable. Mood is "depressed." TP linear. TC reveals no psychosis. A&Ox4. A/C are adequate to interview. - Time Spent With Patient Time Spent With Patient: 35" - Pending Discharge Pending Discharge Within 24 Hours: No Pending Discharge Within 48 Hours: No ICD10 Worksheet Patient Problems: Problems Problem Status Diagnosed Depression Acute
[2016-06-14] MEDS ORDERED: MIDAZOLAM 2 MG/2 ML VIAL ONE (04:51)
[2016-06-14] MEDS ORDERED: fentaNYL 100 MCG/2 ML INJ ONE (04:51)
[2016-06-14] MEDS ORDERED: GLYCOPYRROLATE 0.2 MG/1 ML VIAL ONE (04:51)
[2016-06-14] MEDS ORDERED: KETOROLAC 30 MG/1 ML SDV ONE (04:51)
[2016-06-14] MEDS ORDERED: SUCCINYLCHOLINE CHLORIDE 200 MG/10 ML VIAL ONE (04:52)
[2016-06-14] MEDS ORDERED: ETOMIDATE 20 MG/10 ML VIAL ONE (04:52)
[2016-06-14] MEDS ORDERED: ROCURONIUM 50 MG/5 ML VIAL ONE (04:52)
[2016-06-14] MEDS ORDERED: ONDANSETRON 4 MG/2 ML VIAL ONE (04:52)
[2016-06-14] MEDS ORDERED: CITRIC ACID/SODIUM CITRATE 30 ML UDCUP ONE (06:51)
[2016-06-14] MEDS ORDERED: ONDANSETRON DISINTEGRATING 4 MG TAB ONE (06:51)
[2016-06-14] MEDS ORDERED: LIDOCAINE 2% 5 ML SDV ID ONE (07:00)
[2016-06-14] MEDS ORDERED: ONDANSETRON DISINTEGRATING 4 MG TAB PO ONE (07:00)
[2016-06-14] MEDS ORDERED: NS 500 ML IV ONE (07:00)
[2016-06-14] MEDS ORDERED: CITRIC ACID/SODIUM CITRATE 30 ML UDCUP PO ONE (07:00)
[2016-06-14] MEDS: CHOLECALCIFEROL VIT D3 2,000 UNITS TAB/CAP PO SCH (10:05)
[2016-06-14] MEDS: FLUTICASONE NASAL 120 SPRAYS/16 GM MDI EACHNARE SCH (10:06)
[2016-06-14 12:38] LABS: INTERPRETATION See Comments (())
[2016-06-15] MEDS: traZODone 100 MG TAB PO PRN (03:57)
[2016-06-15] MEDS: CHOLECALCIFEROL VIT D3 2,000 UNITS TAB/CAP PO SCH (08:35)
[2016-06-15] MEDS: FLUTICASONE NASAL 120 SPRAYS/16 GM MDI EACHNARE SCH (08:36)
--- NOTE | 2016-06-15 10:14 | SOAPPROG ---
SOAP Progress Note Assessment/Plan: Assessment: Plan: 06/05/16 21:40 Good first treatment. Some respiratory issues. Will montor. 06/07/16 00:36 Remains depressed. Tolerating ECT well. CCM. 06/07/16 14:18 Tolerating treatments well. CCM. 06/11/16 11:10 Objective improvement exceeds subjective which is common. CCM. 06/12/16 12:33 Continued gradual improvement. CCM. 06/13/16 11:55 Continued objective improvement. CCM. Will discuss potential antidepressants with Dr. Avendano. 06/15/16 10:13 Gradual improvement. Will proceed with Effexor. O/w CCM. Subjective: LATE ENTRY FOR 06/14/16 Pt seen, discussed with staff. Reports no subjective improvement thus far. Staff observes a brighter affect and more spontaneous interaction. Underwent bilateral ECT without complication. Objective: Vital Signs Temp Pulse Resp BP Pulse Ox 36.5 C 68 14 161/74 H 95 06/15/16 06:00 06/15/16 06:00 06/15/16 06:00 06/15/16 06:00 06/15/16 06:00 MSE: Calm, coop. Affect is blunted, but smiles approp. Mood is "depressed." TP linear. TC reveals no psychosis. - Time Spent With Patient Time Spent With Patient: 35" - Pending Discharge Pending Discharge Within 24 Hours: No Pending Discharge Within 48 Hours: No ICD10 Worksheet Patient Problems: Problems Problem Status Diagnosed Depression Acute
[2016-06-15] MEDS: VENLAFAXINE XR 75 MG CAP PO SCH (11:00)
[2016-06-15] MEDS: LORazepam 1 MG TAB PO PRN (19:34)
--- NOTE | 2016-06-15 19:36 | SOAPPROG ---
SOAP Progress Note Assessment/Plan: Assessment: 71yo F with depression, receiving ECT Plan: started on Effexor today cont ECT as scheduled incr trazodone 150mg hs to 200mg hs. change 100mg hs prn to 50mg hs prn would like to resume PT as had in past and try to eventually not need a walker 06/15/16 14:50 per staff, pt slept 6hr. used 100mg prn trazodone around 3am pt reports +depr, low E. glad to start Effexor as this had helped in past +chronic low level back pain, hx r leg broken, using walker reading a lot on unit. feels sleep is not good and wants incr trazodone as used to take. no other complaints casually dressed, calm, cooperative, nml speech rate, low vol, good eye contact , depr mood, dysphoric affect but reactive, denied delusions, denied ah/vh or any si/hi Objective: Vital Signs Temp Pulse Resp BP Pulse Ox 36.5 C 68 14 161/74 H 95 06/15/16 06:00 06/15/16 06:00 06/15/16 06:00 06/15/16 06:00 06/15/16 06:00 - Time Spent With Patient Time Spent With Patient: 25min - Pending Discharge Pending Discharge Within 24 Hours: No Pending Discharge Within 48 Hours: No ICD10 Worksheet Patient Problems: Problems Problem Status Diagnosed Depression Acute
[2016-06-16] MEDS: CHOLECALCIFEROL VIT D3 2,000 UNITS TAB/CAP PO SCH (07:54)
[2016-06-16] MEDS: VENLAFAXINE XR 75 MG CAP PO SCH (07:54)
[2016-06-16] MEDS: FLUTICASONE NASAL 120 SPRAYS/16 GM MDI EACHNARE SCH (07:57)
[2016-06-16] MEDS: LORazepam 1 MG TAB PO PRN ×2 (08:04→14:04)
--- NOTE | 2016-06-16 11:03 | SOAPPROG ---
SOAP Progress Note Assessment/Plan: Assessment: 71yo F with depression, receiving ECT Plan: started on Effexor 75mg on 06/15 cont ECT as scheduled incr trazodone 150mg hs to 200mg hs. change 100mg hs prn to 50mg hs prn *would like to resume PT as had in past and try to eventually not need a walker which she feels will decr depression. PT consult ordered may benefit from engaging in other therapies for pain management to eventually decr oxy use and decr pain as well 06/15/16 14:50 per staff, pt slept 6hr. used 100mg prn trazodone around 3am pt reports +depr, low E. glad to start Effexor as this had helped in past +chronic low level back pain, hx r leg broken, using walker reading a lot on unit. feels sleep is not good and wants incr trazodone as used to take. no other complaints casually dressed, calm, cooperative, nml speech rate, low vol, good eye contact , depr mood, dysphoric affect but reactive, denied delusions, denied ah/vh or any si/hi 06/16/16 16:40 per staff, slept 8hr. depressed. PT ordered. reports no s/e to effexor, but no noted benefits. did sleep better with incr trazodone at hs. preferred reading instead of attending meditation group again asked about PT to walk w/o walker which she feels would help decr her depression. using walker about 1 yr. Objective: Vital Signs Temp Pulse Resp BP Pulse Ox 36.2 C 74 18 126/78 H 94 06/16/16 08:09 06/16/16 08:09 06/16/16 08:09 06/16/16 08:09 06/16/16 08:09 - Time Spent With Patient Time Spent With Patient: 20min - Pending Discharge Pending Discharge Within 24 Hours: No Pending Discharge Within 48 Hours: No ICD10 Worksheet Patient Problems: Problems Problem Status Diagnosed Depression Acute
[2016-06-16] MEDS: oxyCODONE IR 5 MG TAB PO PRN (14:04)
[2016-06-16] MEDS: traZODone 100 MG TAB PO SCH (20:03)
[2016-06-17] MEDS ORDERED: MIDAZOLAM 2 MG/2 ML VIAL ONE (05:29)
[2016-06-17] MEDS ORDERED: ROCURONIUM 50 MG/5 ML VIAL ONE (05:30)
[2016-06-17] MEDS ORDERED: SUCCINYLCHOLINE CHLORIDE 200 MG/10 ML VIAL ONE (05:30)
[2016-06-17] MEDS ORDERED: fentaNYL 100 MCG/2 ML INJ ONE (05:30)
[2016-06-17] MEDS ORDERED: ETOMIDATE 20 MG/10 ML VIAL ONE (05:30)
[2016-06-17] MEDS ORDERED: GLYCOPYRROLATE 0.2 MG/1 ML VIAL ONE (05:30)
[2016-06-17] MEDS ORDERED: ONDANSETRON 4 MG/2 ML VIAL ONE (05:30)
[2016-06-17] MEDS ORDERED: KETOROLAC 30 MG/1 ML SDV ONE (05:30)
[2016-06-17] MEDS ORDERED: THEOPHYLLINE ORAL SOLUTION 80 MG/15 ML UDCUP PO ONE (05:57)
[2016-06-17] MEDS ORDERED: ONDANSETRON DISINTEGRATING 4 MG TAB PO ONE (05:57)
[2016-06-17] MEDS ORDERED: LIDOCAINE 2% 5 ML SDV ID ONE (05:57)
[2016-06-17] MEDS ORDERED: CITRIC ACID/SODIUM CITRATE 30 ML UDCUP PO ONE (05:57)
[2016-06-17] MEDS ORDERED: NS 500 ML IV ONE (05:57)
[2016-06-17] MEDS ORDERED: ONDANSETRON DISINTEGRATING 4 MG TAB ONE (06:12)
[2016-06-17] MEDS ORDERED: CITRIC ACID/SODIUM CITRATE 30 ML UDCUP ONE (06:12)
[2016-06-17] MEDS: VENLAFAXINE XR 75 MG CAP PO SCH (10:53)
[2016-06-17] MEDS: CHOLECALCIFEROL VIT D3 2,000 UNITS TAB/CAP PO SCH (10:53)
[2016-06-17] MEDS: FLUTICASONE NASAL 120 SPRAYS/16 GM MDI EACHNARE SCH (10:54)
[2016-06-17] MEDS: oxyCODONE IR 5 MG TAB PO PRN (15:29)
--- NOTE | 2016-06-17 15:53 | SOAPPROG ---
SOAP Progress Note Assessment/Plan: Assessment: Plan: 06/05/16 21:40 Good first treatment. Some respiratory issues. Will pierre. 06/07/16 00:36 Remains depressed. Tolerating ECT well. CCM. 06/07/16 14:18 Tolerating treatments well. CCM. 06/11/16 11:10 Objective improvement exceeds subjective which is common. CCM. 06/12/16 12:33 Continued gradual improvement. CCM. 06/13/16 11:55 Continued objective improvement. CCM. Will discuss potential antidepressants with Dr. Avendano. 06/15/16 10:13 Gradual improvement. Will proceed with Effexor. O/w [facility]. 06/17/16 15:53 Improving. CCM. Subjective: Pt seen, discussed with staff. Reports feeling "a little better." Continues to improve objectively. Laughing and joking over the weekend. Interactive with staff and fellow patients. Very present in milieu. Underwent bilateral ECT without complication this morning. Objective: Vital Signs Temp Pulse Resp BP Pulse Ox 36.5 C 84 15 137/80 H 94 06/17/16 10:50 06/17/16 10:50 06/17/16 08:40 06/17/16 10:50 06/17/16 10:50 MSE: Calm, coop. Affect is blunted, though smiles and laughs spontaneously. Mood is "better." TP linear. TC reveals no psychosis. A&Ox4, sensorium is clear. A/C are good. - Time Spent With Patient Time Spent With Patient: 35" - Pending Discharge Pending Discharge Within 24 Hours: No Pending Discharge Within 48 Hours: No ICD10 Worksheet Patient Problems: Problems Problem Status Diagnosed Depression Acute
[2016-06-17] MEDS: LORazepam 1 MG TAB PO PRN (17:52)
[2016-06-17] MEDS: traZODone 100 MG TAB PO SCH (20:23)
[2016-06-17] MEDS: traZODone 50 MG TAB PO PRN (20:23)
[2016-06-18] MEDS: VENLAFAXINE XR 75 MG CAP PO SCH (09:15)
[2016-06-18] MEDS: CHOLECALCIFEROL VIT D3 2,000 UNITS TAB/CAP PO SCH (09:15)
[2016-06-18] MEDS: FLUTICASONE NASAL 120 SPRAYS/16 GM MDI EACHNARE SCH (09:17)
--- NOTE | 2016-06-18 12:08 | SOAPPROG ---
SOAP Progress Note Assessment/Plan: Assessment: Plan: 06/05/16 21:40 Good first treatment. Some respiratory issues. Will pierre. 06/07/16 00:36 Remains depressed. Tolerating ECT well. CCM. 06/07/16 14:18 Tolerating treatments well. CCM. 06/11/16 11:10 Objective improvement exceeds subjective which is common. CCM. 06/12/16 12:33 Continued gradual improvement. CCM. 06/13/16 11:55 Continued objective improvement. CCM. Will discuss potential antidepressants with Dr. Avendano. 06/15/16 10:13 Gradual improvement. Will proceed with Effexor. O/w CCM. 06/17/16 15:53 Improving. CCM. 06/18/16 12:08 Continued improvement. CCM. Subjective: Pt seen, discussed with staff. Reports feeling "the same." Staff notes continued improvement in her affect. She is up and around the unit. Did her makeup today. Cognition is good and she is able to read books, converse appropriately. Objective: Vital Signs Temp Pulse Resp BP Pulse Ox 36.5 C 79 14 122/73 H 92 06/18/16 09:07 06/18/16 09:07 06/18/16 06:00 06/18/16 09:07 06/18/16 09:07 - Time Spent With Patient Time Spent With Patient: 35" - Pending Discharge Pending Discharge Within 24 Hours: No Pending Discharge Within 48 Hours: No ICD10 Worksheet Patient Problems: Problems Problem Status Onset Depression Acute
[2016-06-18] MEDS: traZODone 100 MG TAB PO SCH (19:19)
[2016-06-18] MEDS: traZODone 50 MG TAB PO PRN (19:19)
[2016-06-19] MEDS ORDERED: THEOPHYLLINE ORAL SOLUTION 80 MG/15 ML UDCUP PO ONE (05:00)
[2016-06-19] MEDS ORDERED: NS 500 ML IV ONE (05:00)
[2016-06-19] MEDS ORDERED: ONDANSETRON DISINTEGRATING 4 MG TAB PO ONE (05:00)
[2016-06-19] MEDS ORDERED: LIDOCAINE 2% 5 ML SDV ID ONE (05:00)
[2016-06-19] MEDS ORDERED: CITRIC ACID/SODIUM CITRATE 30 ML UDCUP PO ONE (05:00)
[2016-06-19] MEDS ORDERED: MIDAZOLAM 2 MG/2 ML VIAL ONE (05:33)
[2016-06-19] MEDS ORDERED: fentaNYL 100 MCG/2 ML INJ ONE (05:33)
[2016-06-19] MEDS ORDERED: LIDOCAINE 2% 5 ML SDV ONE (05:34)
[2016-06-19] MEDS ORDERED: ONDANSETRON 4 MG/2 ML VIAL ONE (05:34)
[2016-06-19] MEDS ORDERED: KETOROLAC 30 MG/1 ML SDV ONE (05:34)
[2016-06-19] MEDS ORDERED: ROCURONIUM 50 MG/5 ML VIAL ONE (05:34)
[2016-06-19] MEDS ORDERED: GLYCOPYRROLATE 0.2 MG/1 ML VIAL ONE (05:34)
[2016-06-19] MEDS ORDERED: ETOMIDATE 20 MG/10 ML VIAL ONE (05:34)
[2016-06-19] MEDS ORDERED: SUCCINYLCHOLINE CHLORIDE 200 MG/10 ML VIAL ONE (05:35)
[2016-06-19] MEDS ORDERED: ONDANSETRON DISINTEGRATING 4 MG TAB ONE (06:12)
[2016-06-19] MEDS ORDERED: CITRIC ACID/SODIUM CITRATE 30 ML UDCUP ONE (06:12)
[2016-06-19] MEDS: FLUTICASONE NASAL 120 SPRAYS/16 GM MDI EACHNARE SCH (08:58)
[2016-06-19 08:59] LABS: ANION GAP 8 mEq/L (8-16); CALCIUM 8.6 mg/dL (8.5-10.4); CARBON DIOXIDE 25 mEq/l (22-31); CHLORIDE 110 mEq/L (97-110); CREATININE 0.6 mg/dL (0.6-1.0); GLOMERULAR FILTRATION RATE > 60; GLUCOSE 110 mg/dL (70-100); POTASSIUM 4.2 mEq/L (3.5-5.2); SODIUM 143 mEq/L (134-144)
[2016-06-19] MEDS: CHOLECALCIFEROL VIT D3 2,000 UNITS TAB/CAP PO SCH (08:59)
[2016-06-19] MEDS: VENLAFAXINE XR 75 MG CAP PO SCH (08:59)
[2016-06-19] MEDS: oxyCODONE IR 5 MG TAB PO PRN ×2 (13:16→17:43)
--- NOTE | 2016-06-19 15:39 | SOAPPROG ---
SOAP Progress Note Assessment/Plan: Assessment: Plan: 06/05/16 21:40 Good first treatment. Some respiratory issues. Will pierre. 06/07/16 00:36 Remains depressed. Tolerating ECT well. CCM. 06/07/16 14:18 Tolerating treatments well. CCM. 06/11/16 11:10 Objective improvement exceeds subjective which is common. CCM. 06/12/16 12:33 Continued gradual improvement. CCM. 06/13/16 11:55 Continued objective improvement. CCM. Will discuss potential antidepressants with Dr. Avendano. 06/15/16 10:13 Gradual improvement. Will proceed with Effexor. O/w CCM. 06/17/16 15:53 Improving. CCM. 06/18/16 12:08 Continued improvement. CCM. 06/19/16 15:39 Doing well with acute course ECT. CCM. Subjective: Pt seen, discussed with staff. Reports feeling "about the same." Asks when she will be d/c'd. Doing well overall. Underwent bilateral ECT this morning without complication. Cognition is stable. Objective: Vital Signs Temp Pulse Resp BP Pulse Ox 36.4 C 78 12 166/100 H 92 06/19/16 07:52 06/19/16 04:47 06/19/16 07:52 06/19/16 07:52 06/19/16 04:47 Laboratory Results 06/19/16 07:32 MSE: Calm, coop. Affect is blunted, though continues to smile spontaneously. Mood is "the same." TP linear. TC reveals no psychosis. No SI. - Time Spent With Patient Time Spent With Patient: 35" - Pending Discharge Pending Discharge Within 24 Hours: No Pending Discharge Within 48 Hours: No ICD10 Worksheet Patient Problems: Problems Problem Status Onset Depression Acute
[2016-06-19] MEDS: traZODone 100 MG TAB PO SCH (20:34)
[2016-06-20] MEDS: CHOLECALCIFEROL VIT D3 2,000 UNITS TAB/CAP PO SCH (08:06)
[2016-06-20] MEDS: VENLAFAXINE XR 75 MG CAP PO SCH (08:07)
[2016-06-20] MEDS: oxyCODONE IR 5 MG TAB PO PRN (08:07)
[2016-06-20] MEDS: LORazepam 1 MG TAB PO PRN (08:12)
[2016-06-20] MEDS: FLUTICASONE NASAL 120 SPRAYS/16 GM MDI EACHNARE SCH (08:13)
[2016-06-20] MEDS: traZODone 100 MG TAB PO SCH (20:12)
[2016-06-21] MEDS ORDERED: fentaNYL 100 MCG/2 ML INJ ONE (04:41)
[2016-06-21] MEDS ORDERED: MIDAZOLAM 2 MG/2 ML VIAL ONE (04:41)
[2016-06-21] MEDS ORDERED: ROCURONIUM 50 MG/5 ML VIAL ONE (04:42)
[2016-06-21] MEDS ORDERED: ETOMIDATE 20 MG/10 ML VIAL ONE (04:42)
[2016-06-21] MEDS ORDERED: KETOROLAC 30 MG/1 ML SDV ONE (04:42)
[2016-06-21] MEDS ORDERED: ONDANSETRON 4 MG/2 ML VIAL ONE (04:42)
[2016-06-21] MEDS ORDERED: GLYCOPYRROLATE 0.2 MG/1 ML VIAL ONE (04:42)
[2016-06-21] MEDS ORDERED: SUCCINYLCHOLINE CHLORIDE 200 MG/10 ML VIAL ONE (04:42)
[2016-06-21] MEDS ORDERED: LIDOCAINE 2% 5 ML SDV ID ONE (06:06)
[2016-06-21] MEDS ORDERED: CITRIC ACID/SODIUM CITRATE 30 ML UDCUP PO ONE (06:06)
[2016-06-21] MEDS ORDERED: THEOPHYLLINE ORAL SOLUTION 80 MG/15 ML UDCUP PO ONE (06:06)
[2016-06-21] MEDS ORDERED: NS 500 ML IV ONE (06:06)
[2016-06-21] MEDS ORDERED: ONDANSETRON DISINTEGRATING 4 MG TAB PO ONE (06:06)
--- NOTE | 2016-06-21 08:59 | SOAPPROG ---
SOAP Progress Note Assessment/Plan: Assessment: MDD (treatment resistant), Plan: Covering for Dr Bonilla just today. Reviewed MD, RN AND CC notes, labs, and H and P. s/p ECT #3 today with nice decline in mccarthy score to 21 from 39. However , pt has little subjective appreciation of change. Able to smile and make adequate eye contact, yet impov. in speech and with constricted affect. APpears to have STM issues, not recalling Dr Orozco. Insight seems impaired. Will check organic labs given her age and cognition issues: B12, folate, MTHFR, TSH, 25-OH Vit D. Also, pt does have O2 sats in the low 90s, history of snoring and other symptoms that could be c/w ANNALISA (but of course also c/w her depression itself.) Will ask for RT consult and bedside pulsoximetry. COnt acute bilateral ECT. Ketamine discussed with pt as she was astute enough to ask whether or not we were using it for her. 06/10/16 08:11 06/21/16 08:55 Reviewed chart and interviewed pt in ECT suite before procedure. Mccarthy is 16. MMSE is 17/21. Pt is uninsightful about any positive change from last 8 ECTs, despite decrease in mccarthy scores. Is aware of STM effects, and is fearful that is might be permanent. Reassurance given re cognitive issues and pt made aware of nice mccarthy decrease. Still ambivalent re doing ECT today (or at all). Also, RN noted malodorous urine. Will check for UTI. Pt appears unkempt, disheveled, blunted in affect, oriented x2, with only recall of 1/3 words after brief pause. Asked who Dr Orozco was when he presented in front of her. Plan: Hold off on ECT today to allow for some cognitive improvement. Dr Bonilla to reassess and likely restart ECT (maybe 2x/week?) friday. Check for UTI Objective: Vital Signs Temp Pulse Resp BP Pulse Ox 36.6 C 79 16 172/91 H 93 06/21/16 06:24 06/21/16 06:24 06/21/16 06:24 06/21/16 06:24 06/21/16 06:24 Laboratory Results 06/19/16 07:32 ICD10 Worksheet Patient Problems: Problems Problem Status Onset Depression Acute
[2016-06-21] MEDS: VENLAFAXINE XR 150 MG CAP PO SCH (10:56)
[2016-06-21] MEDS: CHOLECALCIFEROL VIT D3 2,000 UNITS TAB/CAP PO SCH (10:56)
[2016-06-21] MEDS: FLUTICASONE NASAL 120 SPRAYS/16 GM MDI EACHNARE SCH (11:03)
[2016-06-21 14:50] LABS: % IMMATURE GRANULYOCYTES 0.5 % (0.0-1.1); ABSOLUTE IMMATURE GRANULOCYTES 0.05 10^3/uL (0.00-0.10); ADD DIFF? NO; ADD MORPH? NO; ADD SCAN? NO; ATYPICAL LYMPHOCYTE FLAG 10 (0-99); FRAGMENT RBC FLAG 10 (0-99); HEMATOCRIT 45.7 % (38.0-47.0); HEMOGLOBIN 15.6 g/dL (12.6-16.3); LEFT SHIFT FLG 0 (0-99); LIPEMIA HEMOLYSIS FLAG 90 (0-99); MEAN CELL HEMOGLOBIN 32.8 pg (27.9-34.1); MEAN CELL HEMOGLOBIN CONCENTR. 34.1 g/dL (32.4-36.7); MEAN PLATELET VOLUME 10.3 fL (8.7-11.7); PLATELET CLUMPS FLAG 10 (0-99); PLATELET COUNT 325 10^3/uL (150-400); RED BLOOD CELL COUNT 4.76 10^6/uL (4.18-5.33); RED CELL DISTRIBUTION WIDTH 12.6 % (11.5-15.2)
[2016-06-21] MEDS: LORazepam 1 MG TAB PO PRN (15:15)
[2016-06-21 15:34] LABS: ALANINE AMINOTRANSFERASE 33 IU/L (9-52); ALBUMIN 4.2 g/dL (3.5-5.0); ALKALINE PHOSPHATASE 68 IU/L (38-126); ANION GAP 14 mEq/L (8-16); ASPARTATE AMINOTRANSFERASE 23 IU/L (14-46); BILIRUBIN,TOTAL 0.6 mg/dL (0.1-1.4); CALCIUM 10.1 mg/dL (8.5-10.4); CARBON DIOXIDE 21 mEq/l (22-31); CHLORIDE 108 mEq/L (97-110); CREATININE 0.6 mg/dL (0.6-1.0); GLOMERULAR FILTRATION RATE > 60; GLUCOSE 151 mg/dL (70-100); POTASSIUM 4.1 mEq/L (3.5-5.2); SODIUM 143 mEq/L (134-144); TOTAL PROTEIN 7.2 g/dL (6.3-8.2)
[2016-06-21 16:23] LABS: COLOR YELLOW; LEUKOCYTE ESTERASE,URINE NEGATIVE (NEGATIVE); NITRITE,URINE NEGATIVE (NEGATIVE)
[2016-06-21] MEDS: traZODone 100 MG TAB PO SCH (20:36)
[2016-06-22] MEDS: FLUTICASONE NASAL 120 SPRAYS/16 GM MDI EACHNARE SCH (07:33)
[2016-06-22] MEDS: CHOLECALCIFEROL VIT D3 2,000 UNITS TAB/CAP PO SCH (07:34)
[2016-06-22] MEDS: VENLAFAXINE XR 150 MG CAP PO SCH (07:35)
[2016-06-22] MEDS: LORazepam 1 MG TAB PO PRN (07:36)
[2016-06-22] MEDS: oxyCODONE IR 5 MG TAB PO PRN ×2 (12:34→18:32)
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
[2016-06-22] MEDS: traZODone 100 MG TAB PO SCH (20:10)
[2016-06-23] MEDS ORDERED: oxyCODONE IR 5 MG TAB PO PRN (06:42)
[2016-06-23] MEDS: FLUTICASONE NASAL 120 SPRAYS/16 GM MDI EACHNARE SCH (08:09)
[2016-06-23] MEDS: CHOLECALCIFEROL VIT D3 2,000 UNITS TAB/CAP PO SCH (08:09)
[2016-06-23] MEDS: VENLAFAXINE XR 150 MG CAP PO SCH (08:10)
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
[2016-06-23] MEDS: traZODone 100 MG TAB PO SCH (20:18)
[2016-06-24] MEDS ORDERED: KETOROLAC 30 MG/1 ML SDV ONE (06:14)
[2016-06-24] MEDS ORDERED: GLYCOPYRROLATE 0.2 MG/1 ML VIAL ONE (06:14)
[2016-06-24] MEDS ORDERED: fentaNYL 100 MCG/2 ML INJ ONE (06:14)
[2016-06-24] MEDS ORDERED: ROCURONIUM 50 MG/5 ML VIAL ONE (06:14)
[2016-06-24] MEDS ORDERED: ONDANSETRON 4 MG/2 ML VIAL ONE (06:14)
[2016-06-24] MEDS ORDERED: MIDAZOLAM 2 MG/2 ML VIAL ONE (06:14)
[2016-06-24] MEDS ORDERED: ETOMIDATE 20 MG/10 ML VIAL ONE (06:14)
[2016-06-24] MEDS ORDERED: SUCCINYLCHOLINE CHLORIDE 200 MG/10 ML VIAL ONE (06:15)
[2016-06-24] MEDS ORDERED: CITRIC ACID/SODIUM CITRATE 30 ML UDCUP PO ONE (08:35)
[2016-06-24] MEDS ORDERED: THEOPHYLLINE ORAL SOLUTION 80 MG/15 ML UDCUP PO ONE (08:35)
[2016-06-24] MEDS ORDERED: NS 500 ML IV ONE (08:35)
[2016-06-24] MEDS ORDERED: ONDANSETRON DISINTEGRATING 4 MG TAB PO ONE (08:35)
[2016-06-24] MEDS ORDERED: LIDOCAINE 2% 5 ML SDV ID ONE (08:35)
[2016-06-24] MEDS ORDERED: CITRIC ACID/SODIUM CITRATE 30 ML UDCUP ONE (09:08)
[2016-06-24] MEDS ORDERED: ONDANSETRON DISINTEGRATING 4 MG TAB ONE (09:08)
--- NOTE | 2016-06-24 10:14 | SOAPPROG ---
SOAP Progress Note Assessment/Plan: Assessment: Plan: 06/05/16 21:40 Good first treatment. Some respiratory issues. Will montor. 06/07/16 00:36 Remains depressed. Tolerating ECT well. CCM. 06/07/16 14:18 Tolerating treatments well. CCM. 06/11/16 11:10 Objective improvement exceeds subjective which is common. [facility]. 06/12/16 12:33 Continued gradual improvement. [facility]. 06/13/16 11:55 Continued objective improvement. CCM. Will discuss potential antidepressants with Dr. Avendano. 06/15/16 10:13 Gradual improvement. Will proceed with Effexor. O/w [facility]. 06/17/16 15:53 Improving. [facility]. 06/18/16 12:08 Continued improvement. [facility]. 06/19/16 15:39 Doing well with acute course ECT. [facility]. 06/24/16 10:15 Mood is improving, but subjectively influenced by cognitive issues, i.e. she is worried about memory issues and this is causing anxiety which is, in turn, influencing her experience of mood. Pt and are agreeable to continuing current plan. Subjective: Pt seen, discussed with staff. Reports feeling anxious about treatments. Discussed with her again the course of ECT including the need to complete the acute course and at least four maintenance treatments at week or greater intervals. She voices an understanding of this. Able to ask appropriate questions. Agrees to plan. Events of the weekend were discussed with Dr. Dill. Pt given the option to leave the hospital at any time, but also advised that this would likely detract from any potential benefit of treatment. She agrees to stay in the hospital. Clinical status and treatment plan reviewed with pt's by phone on 06/20/16. Objective: Vital Signs Temp Pulse Resp BP Pulse Ox 36.6 C 71 15 159/91 H 94 06/24/16 04:34 06/24/16 04:34 06/24/16 04:34 06/24/16 04:34 06/24/16 04:34 Laboratory Results 06/21/16 12:45 06/21/16 12:45 MSE: Appears calm, but states she is anxious. Speech is normal. Affect is blunted, stable, approp. Mood is "anxious." TP linear. TC reveals no psychosis. SHe asks who the anesthesiologist is, but remembers me by name. She is A&Ox4. Denies SI. - Time Spent With Patient Time Spent With Patient: 55" - Pending Discharge Pending Discharge Within 24 Hours: No Pending Discharge Within 48 Hours: No ICD10 Worksheet Patient Problems: Problems Problem Status Onset Depression Acute
[2016-06-24] MEDS: LISINOPRIL 10 MG TAB PO SCH (11:01)
[2016-06-24] MEDS: VENLAFAXINE XR 150 MG CAP PO SCH (11:04)
[2016-06-24] MEDS: CHOLECALCIFEROL VIT D3 2,000 UNITS TAB/CAP PO SCH (11:04)
[2016-06-24] MEDS: FLUTICASONE NASAL 120 SPRAYS/16 GM MDI EACHNARE SCH (11:04)
[2016-06-24] MEDS: oxyCODONE IR 5 MG TAB PO PRN ×2 (11:09→12:20)
[2016-06-24] MEDS: ACETAMINOPHEN 325 MG TAB PO PRN (17:54)
[2016-06-24] MEDS: traZODone 100 MG TAB PO SCH (20:13)
[2016-06-25] MEDS: FLUTICASONE NASAL 120 SPRAYS/16 GM MDI EACHNARE SCH (08:20)
[2016-06-25] MEDS: CHOLECALCIFEROL VIT D3 2,000 UNITS TAB/CAP PO SCH (08:20)
[2016-06-25] MEDS: oxyCODONE IR 5 MG TAB PO PRN ×2 (08:21→16:08)
[2016-06-25] MEDS: VENLAFAXINE XR 150 MG CAP PO SCH (08:21)
[2016-06-25] MEDS: LISINOPRIL 10 MG TAB PO SCH (10:18)
--- NOTE | 2016-06-25 11:29 | SOAPPROG ---
SOAP Progress Note Assessment/Plan: Assessment: Plan: 06/05/16 21:40 Good first treatment. Some respiratory issues. Will chepeor. 06/07/16 00:36 Remains depressed. Tolerating ECT well. CCM. 06/07/16 14:18 Tolerating treatments well. CCM. 06/11/16 11:10 Objective improvement exceeds subjective which is common. CCM. 06/12/16 12:33 Continued gradual improvement. CCM. 06/13/16 11:55 Continued objective improvement. CCM. Will discuss potential antidepressants with Dr. Avendano. 06/15/16 10:13 Gradual improvement. Will proceed with Effexor. O/w CCM. 06/17/16 15:53 Improving. CCM. 06/18/16 12:08 Continued improvement. CCM. 06/19/16 15:39 Doing well with acute course ECT. CCM. 06/24/16 10:15 Mood is improving, but subjectively influenced by cognitive issues, i.e. she is worried about memory issues and this is causing anxiety which is, in turn, influencing her experience of mood. Pt and are agreeable to continuing current plan. 06/25/16 11:29 Doing well. CCM. Subjective: Pt seen, discussed with staff. Reports feeling "pretty good." Calmer, brighter today. Up and around the unit. Wearing oxygen. Slept well last night. I reviewed with her again the plan for her care. Objective: Vital Signs Temp Pulse Resp BP Pulse Ox 36.8 C 79 14 100/58 L 91 L 06/25/16 08:25 06/25/16 08:25 06/25/16 06:00 06/25/16 08:25 06/25/16 08:25 Laboratory Results 06/21/16 12:45 06/21/16 12:45 MSE: Calm, coop. Affect is slightly blunted, though she does smile spontaneously. Mood is "pretty good." TP linear. TC reveals no psychosis. No SI. - Time Spent With Patient Time Spent With Patient: 35" - Pending Discharge Pending Discharge Within 24 Hours: No Pending Discharge Within 48 Hours: No ICD10 Worksheet Patient Problems: Problems Problem Status Onset Depression Acute
[2016-06-25] MEDS: LORazepam 1 MG TAB PO PRN (16:09)
[2016-06-25] MEDS: traZODone 100 MG TAB PO SCH (19:44)
[2016-06-26] MEDS ORDERED: THEOPHYLLINE ORAL SOLUTION 80 MG/15 ML UDCUP PO ONE ×2 (00:19→05:00)
[2016-06-26] MEDS ORDERED: NS 500 ML IV ONE (00:19)
[2016-06-26] MEDS ORDERED: ONDANSETRON DISINTEGRATING 4 MG TAB PO ONE (00:19)
[2016-06-26] MEDS ORDERED: CITRIC ACID/SODIUM CITRATE 30 ML UDCUP PO ONE (00:19)
[2016-06-26] MEDS ORDERED: LIDOCAINE 2% 5 ML SDV ID ONE (00:19)
[2016-06-26] MEDS: LISINOPRIL 10 MG TAB PO SCH ×2 (04:29→04:31)
[2016-06-26] MEDS ORDERED: KETOROLAC 30 MG/1 ML SDV ONE (06:16)
[2016-06-26] MEDS ORDERED: GLYCOPYRROLATE 0.2 MG/1 ML VIAL ONE (06:16)
[2016-06-26] MEDS ORDERED: MIDAZOLAM 2 MG/2 ML VIAL ONE (06:16)
[2016-06-26] MEDS ORDERED: ONDANSETRON 4 MG/2 ML VIAL ONE (06:16)
[2016-06-26] MEDS ORDERED: fentaNYL 100 MCG/2 ML INJ ONE (06:16)
[2016-06-26] MEDS ORDERED: LABETALOL 20 MG/4 ML IVP ONE (06:17)
[2016-06-26] MEDS ORDERED: ETOMIDATE 20 MG/10 ML VIAL ONE (06:17)
[2016-06-26] MEDS ORDERED: ROCURONIUM 50 MG/5 ML VIAL ONE (06:17)
[2016-06-26] MEDS ORDERED: SUCCINYLCHOLINE CHLORIDE 200 MG/10 ML VIAL ONE (06:18)
[2016-06-26] MEDS ORDERED: ONDANSETRON DISINTEGRATING 4 MG TAB ONE (06:22)
[2016-06-26] MEDS ORDERED: CITRIC ACID/SODIUM CITRATE 30 ML UDCUP ONE (06:23)
[2016-06-26] MEDS: CHOLECALCIFEROL VIT D3 2,000 UNITS TAB/CAP PO SCH (08:31)
[2016-06-26] MEDS: VENLAFAXINE XR 150 MG CAP PO SCH (08:31)
[2016-06-26] MEDS: FLUTICASONE NASAL 120 SPRAYS/16 GM MDI EACHNARE SCH (08:31)
[2016-06-26] MEDS: oxyCODONE IR 5 MG TAB PO PRN ×2 (08:43→11:34)
--- NOTE | 2016-06-26 09:09 | SOAPPROG ---
SOAP Progress Note Assessment/Plan: Assessment: Plan: 06/05/16 21:40 Good first treatment. Some respiratory issues. Will pierre. 06/07/16 00:36 Remains depressed. Tolerating ECT well. CCM. 06/07/16 14:18 Tolerating treatments well. CCM. 06/11/16 11:10 Objective improvement exceeds subjective which is common. CCM. 06/12/16 12:33 Continued gradual improvement. CCM. 06/13/16 11:55 Continued objective improvement. CCM. Will discuss potential antidepressants with Dr. Avendano. 06/15/16 10:13 Gradual improvement. Will proceed with Effexor. O/w CCM. 06/17/16 15:53 Improving. CCM. 06/18/16 12:08 Continued improvement. CCM. 06/19/16 15:39 Doing well with acute course ECT. [facility]. 06/24/16 10:15 Mood is improving, but subjectively influenced by cognitive issues, i.e. she is worried about memory issues and this is causing anxiety which is, in turn, influencing her experience of mood. Pt and are agreeable to continuing current plan. 06/25/16 11:29 Doing well. CCM. 06/26/16 09:09 Doing well. CCM. Subjective: Pt seen, discussed with staff. Slept well. More cheerful this morning. Underwent RUL ECT this morning without complication. Cognition is good. Objective: Vital Signs Temp Pulse Resp BP Pulse Ox 36.3 C 68 12 184/84 H 91 L 06/26/16 08:09 06/26/16 08:09 06/26/16 08:09 06/26/16 08:09 06/26/16 08:09 Laboratory Results 06/21/16 12:45 06/21/16 12:45 MSE: Calm, coop. Affect is blunted, stable. Mood is "OK." TP linear. TC reveals no psychosis. A&Ox4. - Time Spent With Patient Time Spent With Patient: 35" - Pending Discharge Pending Discharge Within 24 Hours: No Pending Discharge Within 48 Hours: No ICD10 Worksheet Patient Problems: Problems Problem Status Onset Depression Acute
[2016-06-26] MEDS: ACETAMINOPHEN 325 MG TAB PO PRN (15:35)
[2016-06-26] MEDS: traZODone 100 MG TAB PO SCH (20:19)
[2016-06-27] MEDS: oxyCODONE IR 5 MG TAB PO PRN (05:39)
[2016-06-27] MEDS: CHOLECALCIFEROL VIT D3 2,000 UNITS TAB/CAP PO SCH (08:28)
[2016-06-27] MEDS: VENLAFAXINE XR 150 MG CAP PO SCH (08:29)
[2016-06-27] MEDS: FLUTICASONE NASAL 120 SPRAYS/16 GM MDI EACHNARE SCH (08:29)
[2016-06-27] MEDS: ACETAMINOPHEN 325 MG TAB PO PRN (08:35)
--- NOTE | 2016-06-27 12:44 | SOAPPROG ---
SOAP Progress Note Assessment/Plan: Assessment: Plan: 06/05/16 21:40 Good first treatment. Some respiratory issues. Will montor. 06/07/16 00:36 Remains depressed. Tolerating ECT well. CCM. 06/07/16 14:18 Tolerating treatments well. CCM. 06/11/16 11:10 Objective improvement exceeds subjective which is common. [facility]. 06/12/16 12:33 Continued gradual improvement. [facility]. 06/13/16 11:55 Continued objective improvement. [facility]. Will discuss potential antidepressants with Dr. Avendano. 06/15/16 10:13 Gradual improvement. Will proceed with Effexor. O/w [facility]. 06/17/16 15:53 Improving. [facility]. 06/18/16 12:08 Continued improvement. [facility]. 06/19/16 15:39 Doing well with acute course ECT. [facility]. 06/24/16 10:15 Mood is improving, but subjectively influenced by cognitive issues, i.e. she is worried about memory issues and this is causing anxiety which is, in turn, influencing her experience of mood. Pt and are agreeable to continuing current plan. 06/25/16 11:29 Doing well. [facility]. 06/26/16 09:09 Doing well. [facility]. 06/27/16 12:39 Mood continues to improve. Cognition is stable. Pain increased with decrease oxy. Will increase back to 10mg BID. Subjective: Pt seen, discussed with staff. Reports feeling "OK." C/o increased pain and h/ a since decreasing oxycodone CR. APAP ineffective. Cognition is stable. We reviewed the plan again for her treatment. Will treat tomorrow and Friday and if all is well will go to weekly at that point. Objective: Vital Signs Temp Pulse Resp BP Pulse Ox 36.8 C 69 14 166/85 H 90 L 06/27/16 06:18 06/27/16 06:18 06/27/16 06:18 06/27/16 06:18 06/27/16 06:18 Laboratory Results 06/21/16 12:45 06/21/16 12:45 MSE: Calm, coop. Affect is bright, smiling. Mood is "OK." TP linear. TC reveals no psychosis. A&Ox3, couldn't remember day of the month. No SI. - Time Spent With Patient Time Spent With Patient: 35" - Pending Discharge Pending Discharge Within 24 Hours: No Pending Discharge Within 48 Hours: No ICD10 Worksheet Patient Problems: Problems Problem Status Onset Depression Acute
[2016-06-27] MEDS ORDERED: THEOPHYLLINE ORAL SOLUTION 80 MG/15 ML UDCUP PO ONE (12:45)
[2016-06-27] MEDS ORDERED: CITRIC ACID/SODIUM CITRATE 30 ML UDCUP PO ONE (12:45)
[2016-06-27] MEDS ORDERED: ONDANSETRON DISINTEGRATING 4 MG TAB PO ONE (12:45)
[2016-06-27] MEDS ORDERED: LIDOCAINE 2% 5 ML SDV ID ONE (12:45)
[2016-06-27] MEDS ORDERED: NS 500 ML IV ONE (12:45)
[2016-06-27] MEDS: traZODone 100 MG TAB PO SCH (19:45)
[2016-06-28] MEDS ORDERED: fentaNYL 100 MCG/2 ML INJ ONE (05:00)
[2016-06-28] MEDS ORDERED: MIDAZOLAM 2 MG/2 ML VIAL ONE (05:00)
[2016-06-28] MEDS ORDERED: KETOROLAC 30 MG/1 ML SDV ONE (05:00)
[2016-06-28] MEDS ORDERED: GLYCOPYRROLATE 0.2 MG/1 ML VIAL ONE (05:00)
[2016-06-28] MEDS ORDERED: ONDANSETRON 4 MG/2 ML VIAL ONE (05:01)
[2016-06-28] MEDS ORDERED: LABETALOL 20 MG/4 ML IVP ONE (05:01)
[2016-06-28] MEDS ORDERED: ROCURONIUM 50 MG/5 ML VIAL ONE (05:01)
[2016-06-28] MEDS ORDERED: SUCCINYLCHOLINE CHLORIDE 200 MG/10 ML VIAL ONE (05:01)
[2016-06-28] MEDS ORDERED: ETOMIDATE 20 MG/10 ML VIAL ONE (05:01)
[2016-06-28] MEDS ORDERED: THEOPHYLLINE ORAL SOLUTION 80 MG/15 ML UDCUP ONE (05:06)
[2016-06-28] MEDS: LISINOPRIL 10 MG TAB PO SCH (05:14)
[2016-06-28] MEDS ORDERED: THEOPHYLLINE ORAL SOLUTION 80 MG/15 ML UDCUP PO ONE (05:30)
[2016-06-28] MEDS ORDERED: CITRIC ACID/SODIUM CITRATE 30 ML UDCUP ONE (06:16)
[2016-06-28] MEDS ORDERED: ONDANSETRON DISINTEGRATING 4 MG TAB ONE (06:16)
--- NOTE | 2016-06-28 07:04 | SOAPPROG ---
SOAP Progress Note Assessment/Plan: Assessment: Plan: 06/05/16 21:40 Good first treatment. Some respiratory issues. Will montor. 06/07/16 00:36 Remains depressed. Tolerating ECT well. CCM. 06/07/16 14:18 Tolerating treatments well. CCM. 06/11/16 11:10 Objective improvement exceeds subjective which is common. CCM. 06/12/16 12:33 Continued gradual improvement. CCM. 06/13/16 11:55 Continued objective improvement. CCM. Will discuss potential antidepressants with Dr. Avendano. 06/15/16 10:13 Gradual improvement. Will proceed with Effexor. O/w CCM. 06/17/16 15:53 Improving. CCM. 06/18/16 12:08 Continued improvement. CCM. 06/19/16 15:39 Doing well with acute course ECT. [facility]. 06/24/16 10:15 Mood is improving, but subjectively influenced by cognitive issues, i.e. she is worried about memory issues and this is causing anxiety which is, in turn, influencing her experience of mood. Pt and are agreeable to continuing current plan. 06/25/16 11:29 Doing well. CCM. 06/26/16 09:09 Doing well. CCM. 06/27/16 12:39 Mood continues to improve. Cognition is stable. Pain increased with decrease oxy. Will increase back to 10mg BID. 06/28/16 07:04 Doing well. CCM. Subjective: Pt seen, discussed with staff. Reports feeling "pretty good" this morning. States she slept too soundly last night with trazodone and wet the bed. Agreeable to plan for d/c on Friday after treatment. Cognition good. Objective: Vital Signs Temp Pulse Resp BP Pulse Ox 36.6 C 74 14 177/89 H 93 06/28/16 05:43 06/28/16 05:43 06/28/16 05:43 06/28/16 05:43 06/28/16 05:43 Laboratory Results 06/21/16 12:45 06/21/16 12:45 MSE: Calm, coop. Affect is blunted, stable. Mood is "pretty good." TP linear. TC reveals no psychosis. No SI. - Time Spent With Patient Time Spent With Patient: 35" - Pending Discharge Pending Discharge Within 24 Hours: No Pending Discharge Within 48 Hours: No ICD10 Worksheet Patient Problems: Problems Problem Status Onset Depression Acute
[2016-06-28] MEDS: FLUTICASONE NASAL 120 SPRAYS/16 GM MDI EACHNARE SCH (09:32)
[2016-06-28] MEDS: VENLAFAXINE XR 150 MG CAP PO SCH (09:32)
[2016-06-28] MEDS: CHOLECALCIFEROL VIT D3 2,000 UNITS TAB/CAP PO SCH (09:32)
[2016-06-28] MEDS: oxyCODONE IR 5 MG TAB PO PRN (17:10)
[2016-06-28] MEDS: traZODone 100 MG TAB PO SCH (19:10)
[2016-06-29] MEDS: oxyCODONE IR 5 MG TAB PO PRN (02:17)
[2016-06-29] MEDS: VENLAFAXINE XR 150 MG CAP PO SCH (08:26)
[2016-06-29] MEDS: LISINOPRIL 10 MG TAB PO SCH (08:26)
[2016-06-29] MEDS: CHOLECALCIFEROL VIT D3 2,000 UNITS TAB/CAP PO SCH (08:27)
[2016-06-29] MEDS: FLUTICASONE NASAL 120 SPRAYS/16 GM MDI EACHNARE SCH (08:30)
[2016-06-29] MEDS: traZODone 100 MG TAB PO SCH (19:32)
--- NOTE | 2016-06-29 21:56 | SOAPPROG ---
SOAP Progress Note Assessment/Plan: Assessment: Plan: 06/05/16 21:40 Good first treatment. Some respiratory issues. Will montor. 06/07/16 00:36 Remains depressed. Tolerating ECT well. CCM. 06/07/16 14:18 Tolerating treatments well. CCM. 06/11/16 11:10 Objective improvement exceeds subjective which is common. CCM. 06/12/16 12:33 Continued gradual improvement. CCM. 06/13/16 11:55 Continued objective improvement. CCM. Will discuss potential antidepressants with Dr. Avendano. 06/15/16 10:13 Gradual improvement. Will proceed with Effexor. O/w CCM. 06/17/16 15:53 Improving. CCM. 06/18/16 12:08 Continued improvement. CCM. 06/19/16 15:39 Doing well with acute course ECT. CCM. 06/24/16 10:15 Mood is improving, but subjectively influenced by cognitive issues, i.e. she is worried about memory issues and this is causing anxiety which is, in turn, influencing her experience of mood. Pt and are agreeable to continuing current plan. 06/25/16 11:29 Doing well. CCM. 06/26/16 09:09 Doing well. CCM. 06/27/16 12:39 Mood continues to improve. Cognition is stable. Pain increased with decrease oxy. Will increase back to 10mg BID. 06/28/16 07:04 Doing well. CCM. 06/29/16 21:57 Resolving mild confusion. CCM. Subjective: Pt seen, discussed with staff. Confusion from prolonged seizure yesterday has improved. Discussed case and treatment plan with pt's sister and her . Objective: Vital Signs Temp Pulse Resp BP Pulse Ox 36.1 C 82 18 128/72 H 92 06/29/16 14:00 06/29/16 14:00 06/29/16 14:00 06/29/16 14:00 06/29/16 14:00 Laboratory Results 06/21/16 12:45 06/21/16 12:45 MSE: Calm, coop. Affect is brighter, stable, approp. Mood is "pretty good." TP linear though loses track at times. TC reveals no psychosis. No SI. - Time Spent With Patient Time Spent With Patient: 25" - Pending Discharge Pending Discharge Within 24 Hours: No Pending Discharge Within 48 Hours: No ICD10 Worksheet Patient Problems: Problems Problem Status Onset Depression Acute
[2016-06-30] MEDS: VENLAFAXINE XR 150 MG CAP PO SCH (08:13)
[2016-06-30] MEDS: LISINOPRIL 10 MG TAB PO SCH (08:13)
[2016-06-30] MEDS: CHOLECALCIFEROL VIT D3 2,000 UNITS TAB/CAP PO SCH (08:14)
[2016-06-30] MEDS: FLUTICASONE NASAL 120 SPRAYS/16 GM MDI EACHNARE SCH (08:14)
[2016-06-30] MEDS: traZODone 100 MG TAB PO SCH (19:03)
--- NOTE | 2016-06-30 22:37 | SOAPPROG ---
SOAP Progress Note Assessment/Plan: Assessment: Plan: 06/05/16 21:40 Good first treatment. Some respiratory issues. Will montor. 06/07/16 00:36 Remains depressed. Tolerating ECT well. CCM. 06/07/16 14:18 Tolerating treatments well. CCM. 06/11/16 11:10 Objective improvement exceeds subjective which is common. CCM. 06/12/16 12:33 Continued gradual improvement. CCM. 06/13/16 11:55 Continued objective improvement. CCM. Will discuss potential antidepressants with Dr. Avendano. 06/15/16 10:13 Gradual improvement. Will proceed with Effexor. O/w CCM. 06/17/16 15:53 Improving. CCM. 06/18/16 12:08 Continued improvement. CCM. 06/19/16 15:39 Doing well with acute course ECT. CCM. 06/24/16 10:15 Mood is improving, but subjectively influenced by cognitive issues, i.e. she is worried about memory issues and this is causing anxiety which is, in turn, influencing her experience of mood. Pt and are agreeable to continuing current plan. 06/25/16 11:29 Doing well. CCM. 06/26/16 09:09 Doing well. CCM. 06/27/16 12:39 Mood continues to improve. Cognition is stable. Pain increased with decrease oxy. Will increase back to 10mg BID. 06/28/16 07:04 Doing well. CCM. 06/29/16 21:57 Resolving mild confusion. CCM. 06/30/16 22:37 Improved. CCM. Subjective: Pt seen, discussed with staff. Reports feeling "good." Cognition has normalized. Mood subjectively improved. Objective: Vital Signs Temp Pulse Resp BP Pulse Ox 36.2 C 82 18 122/78 H 94 06/30/16 08:16 06/30/16 08:16 06/30/16 08:16 06/30/16 08:16 06/30/16 08:16 Laboratory Results 06/21/16 12:45 06/21/16 12:45 MSE: Calm, coop. Affect is euthymic, stable. Mood is "good.' TP linera. TC reveals no psychosis. No SI. - Time Spent With Patient Time Spent With Patient: 15" - Pending Discharge Pending Discharge Within 24 Hours: No Pending Discharge Within 48 Hours: No ICD10 Worksheet Patient Problems: Problems Problem Status Onset Depression Acute
[2016-07-01] MEDS ORDERED: CITRIC ACID/SODIUM CITRATE 30 ML UDCUP PO ONE (04:00)
[2016-07-01] MEDS ORDERED: THEOPHYLLINE ORAL SOLUTION 80 MG/15 ML UDCUP PO ONE (04:00)
[2016-07-01] MEDS ORDERED: ONDANSETRON DISINTEGRATING 4 MG TAB PO ONE (04:00)
[2016-07-01] MEDS ORDERED: LIDOCAINE 2% 5 ML SDV ID ONE (04:00)
[2016-07-01] MEDS ORDERED: NS 500 ML IV ONE (04:00)
[2016-07-01] MEDS ORDERED: THEOPHYLLINE ORAL SOLUTION 80 MG/15 ML UDCUP ONE (04:26)
[2016-07-01] MEDS ORDERED: fentaNYL 100 MCG/2 ML INJ ONE (05:11)
[2016-07-01] MEDS ORDERED: MIDAZOLAM 2 MG/2 ML VIAL ONE (05:11)
[2016-07-01] MEDS ORDERED: ETOMIDATE 20 MG/10 ML VIAL ONE (05:11)
[2016-07-01] MEDS ORDERED: SUCCINYLCHOLINE CHLORIDE 200 MG/10 ML VIAL ONE (05:12)
[2016-07-01] MEDS ORDERED: GLYCOPYRROLATE 0.2 MG/1 ML VIAL ONE (05:14)
[2016-07-01] MEDS ORDERED: KETOROLAC 30 MG/1 ML SDV ONE (05:14)
[2016-07-01] MEDS ORDERED: ONDANSETRON 4 MG/2 ML VIAL ONE (05:14)
[2016-07-01] MEDS ORDERED: ROCURONIUM 50 MG/5 ML VIAL ONE (05:15)
[2016-07-01] MEDS ORDERED: LABETALOL 20 MG/4 ML IVP ONE (05:15)
[2016-07-01] MEDS: LISINOPRIL 10 MG TAB PO SCH (05:27)
[2016-07-01] MEDS ORDERED: ONDANSETRON DISINTEGRATING 4 MG TAB ONE (05:29)
[2016-07-01] MEDS ORDERED: CITRIC ACID/SODIUM CITRATE 30 ML UDCUP ONE (05:29)
[2016-07-01] MEDS: FLUTICASONE NASAL 120 SPRAYS/16 GM MDI EACHNARE SCH (09:35)
[2016-07-01] MEDS: CHOLECALCIFEROL VIT D3 2,000 UNITS TAB/CAP PO SCH (09:37)
[2016-07-01] MEDS: VENLAFAXINE XR 150 MG CAP PO SCH (09:37)
[2016-07-01] MEDS: oxyCODONE IR 5 MG TAB PO PRN ×2 (11:36→16:41)
--- NOTE | 2016-07-01 18:39 | SOAPPROG ---
SOAP Progress Note Assessment/Plan: Assessment: Plan: 06/05/16 21:40 Good first treatment. Some respiratory issues. Will pierre. 06/07/16 00:36 Remains depressed. Tolerating ECT well. CCM. 06/07/16 14:18 Tolerating treatments well. CCM. 06/11/16 11:10 Objective improvement exceeds subjective which is common. [facility]. 06/12/16 12:33 Continued gradual improvement. [facility]. 06/13/16 11:55 Continued objective improvement. [facility]. Will discuss potential antidepressants with Dr. Avendano. 06/15/16 10:13 Gradual improvement. Will proceed with Effexor. O/w [facility]. 06/17/16 15:53 Improving. [facility]. 06/18/16 12:08 Continued improvement. [facility]. 06/19/16 15:39 Doing well with acute course ECT. [facility]. 06/24/16 10:15 Mood is improving, but subjectively influenced by cognitive issues, i.e. she is worried about memory issues and this is causing anxiety which is, in turn, influencing her experience of mood. Pt and are agreeable to continuing current plan. 06/25/16 11:29 Doing well. [facility]. 06/26/16 09:09 Doing well. [facility]. 06/27/16 12:39 Mood continues to improve. Cognition is stable. Pain increased with decrease oxy. Will increase back to 10mg BID. 06/28/16 07:04 Doing well. [facility]. 06/29/16 21:57 Resolving mild confusion. [facility]. 06/30/16 22:37 Improved. [facility]. 07/01/16 18:38 Appears to have benefitted from acute course. Current anxiety seems to be related to 's hesitancy re: her returning home and her desire to do so. Will [facility], monitor. Likely d/c by 07/03/16 Subjective: Pt seen, discussed with staff. Repots feeling more anxious this morning before ECT. Seems related to desire to be finished with acute course. She senses H's resistance to her returning home and is clearly frustrated by it. She asks many questions prior to treatment. Had a good treatment with no complications. Objective: Vital Signs Temp Pulse Resp BP Pulse Ox 36.5 C 76 16 172/93 H 94 07/01/16 09:35 07/01/16 09:35 07/01/16 07:16 07/01/16 09:35 07/01/16 09:35 Laboratory Results 06/21/16 12:45 06/21/16 12:45 MSE: Moderately anxious, tearful at times. Affect is constricted, anxious. TP linear. TC reveals no psychosis. A&Ox4, sensorium is clear. No SI. - Time Spent With Patient Time Spent With Patient: 35" - Pending Discharge Pending Discharge Within 24 Hours: No Pending Discharge Within 48 Hours: No ICD10 Worksheet Patient Problems: Problems Problem Status Onset Depression Acute
[2016-07-01] MEDS: traZODone 100 MG TAB PO SCH (20:19)
[2016-07-02] MEDS: CHOLECALCIFEROL VIT D3 2,000 UNITS TAB/CAP PO SCH (08:52)
[2016-07-02] MEDS: FLUTICASONE NASAL 120 SPRAYS/16 GM MDI EACHNARE SCH (08:52)
[2016-07-02] MEDS: VENLAFAXINE XR 150 MG CAP PO SCH (08:52)
[2016-07-02] MEDS: LISINOPRIL 10 MG TAB PO SCH (08:57)
[2016-07-02] MEDS ORDERED: oxyCODONE IR 5 MG TAB PO PRN (10:49)
[2016-07-02] MEDS ORDERED: BREXPIPRAZOLE 1 MG TAB PO SCH (11:00)
[2016-07-02] MEDS: BREXPIPRAZOLE 1 MG TAB PO SCH ×2 (14:26→16:38)
--- NOTE | 2016-07-02 17:19 | SOAPPROG ---
SOAP Progress Note Assessment/Plan: Assessment: Plan: 06/05/16 21:40 Good first treatment. Some respiratory issues. Will pierre. 06/07/16 00:36 Remains depressed. Tolerating ECT well. [facility]. 06/07/16 14:18 Tolerating treatments well. CCM. 06/11/16 11:10 Objective improvement exceeds subjective which is common. [facility]. 06/12/16 12:33 Continued gradual improvement. [facility]. 06/13/16 11:55 Continued objective improvement. [facility]. Will discuss potential antidepressants with Dr. Avendano. 06/15/16 10:13 Gradual improvement. Will proceed with Effexor. O/w [facility]. 06/17/16 15:53 Improving. [facility]. 06/18/16 12:08 Continued improvement. [facility]. 06/19/16 15:39 Doing well with acute course ECT. [facility]. 06/24/16 10:15 Mood is improving, but subjectively influenced by cognitive issues, i.e. she is worried about memory issues and this is causing anxiety which is, in turn, influencing her experience of mood. Pt and are agreeable to continuing current plan. 06/25/16 11:29 Doing well. [facility]. 06/26/16 09:09 Doing well. [facility]. 06/27/16 12:39 Mood continues to improve. Cognition is stable. Pain increased with decrease oxy. Will increase back to 10mg BID. 06/28/16 07:04 Doing well. [facility]. 06/29/16 21:57 Resolving mild confusion. [facility]. 06/30/16 22:37 Improved. [facility]. 07/01/16 18:38 Appears to have benefitted from acute course. Current anxiety seems to be related to 's hesitancy re: her returning home and her desire to do so. Will [facility], monitor. Likely d/c by 07/03/16 07/02/16 17:20 Improved overall. Will [facility] with return for ECT on 07/08/16 and trial of Rexulti. Subjective: Pt seen, discussed with staff. Reports feeling "pretty good." Looking forward to going home. Cognition has normalized after some post-treatment confusion yesterday. She continues to ask for additional antidepressant medication. I reviewed with her the options and she is agreeable to a trial of augmentation with Rexulti. The risks, benefits and alternatives of this are reviewed. Objective: Vital Signs Temp Pulse Resp BP Pulse Ox 36.5 C 102 H 12 130/72 H 96 07/02/16 06:00 07/02/16 06:00 07/02/16 06:00 07/02/16 08:57 07/02/16 06:00 Laboratory Results 06/21/16 12:45 06/21/16 12:45 MSE: Calm, coop. Affect is brighter, stable, approp. Mood is "pretty good." TP linear. TC reveals no psychosis. A&Ox4. No confusion or evidence of delirium. No SI. - Time Spent With Patient Time Spent With Patient: 35" - Pending Discharge Pending Discharge Within 24 Hours: No Pending Discharge Within 48 Hours: No ICD10 Worksheet Patient Problems: Problems Problem Status Onset Depression Acute
[2016-07-02] MEDS: traZODone 100 MG TAB PO SCH (19:33)
[2016-07-03 05:36] VITALS: PULSE 75; RESP 16; TEMP 98.2; O2SAT 92
[2016-07-03] MEDS: FLUTICASONE NASAL 120 SPRAYS/16 GM MDI EACHNARE SCH ×2 (08:38→08:58)
[2016-07-03] MEDS: LISINOPRIL 10 MG TAB PO SCH (08:38)
[2016-07-03] MEDS: CHOLECALCIFEROL VIT D3 2,000 UNITS TAB/CAP PO SCH (08:38)
[2016-07-03] MEDS: VENLAFAXINE XR 150 MG CAP PO SCH (08:38)
[2016-07-03] MEDS: BREXPIPRAZOLE 1 MG TAB PO SCH (08:38)
[2016-07-03 08:40] VITALS: BP 143/77
== END 2016-07-03 14:40 | disposition home or self-care (01) | DRG 885 ==
LOC: BBEH 19:45
PROVIDERS: ADMIT Psychiatry & Neurology Psychiatry; ATTEND Psychiatry & Neurology Psychiatry
PROC: GZB4ZZZ Other Electroconvulsive Therapy (ICD-10-PCS; principal; 2016-06-05)
DX: F33.9 Major depressive disorder, recurrent, unspecified (principal); R06.2 Wheezing; G47.00 Insomnia, unspecified; R41.3 Other amnesia; E87.0 Hyperosmolality and hypernatremia; R26.9 Unspecified abnormalities of gait and mobility; Z98.1 Arthrodesis status; M48.02 Spinal stenosis, cervical region; M81.0 Age-related osteoporosis without current pathological fracture; Z87.81 Personal history of (healed) traumatic fracture
CPT/HCPCS: 80305; 81291-90; 82607-90; 97110-GP; 97112-GP; 97116-GP; 97161-GP; G0480; G8978-GP-CI; G8978-GP-CJ; G8979-GP-CI; G8980-GP-CI; J0330; J1885; J2250; J2405; J2704; J3010

== ENCOUNTER 2016-06-05 16:44 | Emergency (ER) | payer OTHER, MEDICARE ==
--- NOTE | 2016-06-05 17:53 | EDPHY ---
H & P Time Seen by Provider: 06/05/16 17:06 HPI/ROS: HPI Hypoxia. 70-year-old female by ambulance from ECT lab [address] [place] [address]. This patient was apparently intubated by anesthesia during ECT. She received standard dose of IV succinylcholine and etomidate. When she was extubated she was hypoxic on room air in the mid 80s. She came up to over 90% on 2 L of nasal cannula oxygen. She was sent to the emergency department for further evaluation of her hypoxia. She denies any chest pain. No shortness of breath. She has no complaints at this time. On 2 L by nasal cannula here she is 98-99%. ROS: Constitutional: No fever, no chills. No weakness. Eyes: No discharge. No changes in vision. ENT: No sore throat. No nasal congestion or rhinorrhea. Respiratory: No cough. No shortness of breath. Cardiac: No chest pain, no palpitations. Gastrointestinal: No abdominal pain, no vomiting, no diarrhea. Genitourinary: No hematuria. No dysuria or increased frequency with urination. Musculoskeletal: No back pain. No neck pain. No myalgias or arthralgias. Skin: No rashes. Neurological: No headache. No focal weakness or altered sensation. Past medical history: Depression. As above. Social history: She is here by herself. She is a former smoker from years ago. Physical Exam: General Appearance: Alert, no distress. This patient is responding to questions appropriately and in full sentences. This patient appears well- hydrated and well-nourished. Eyes: Pupils equal and round no pallor or injection. No lid edema, erythema or injection. ENT, Mouth: Mucous membranes are moist. The pharyngeal tissues are unremarkable. No edema or swelling. No asymmetry suggestive of abscess. No erythema or exudates. Respiratory: There are no retractions, lungs lung sounds are shallow bilaterally. No wheezing. No rhonchi. No tachypnea. Cardiovascular: Regular rate and rhythm. No murmur. Gastrointestinal: Abdomen is soft and nontender, no masses, bowel sounds normal. No focal tenderness at McBurney's point. No Burgos sign. Neurological: Motor sensory function is grossly intact. Cranial nerves are normal. Gait is normal. Skin: Warm and dry, no rashes. Musculoskeletal: Neck is supple and nontender. Extremities are symmetrical. All joints range without pain or impingement. Psychiatric: No agitation. No depression. Database: EKG: EKG time is 6:04 p.m.; EKG shows a narrow complex normal sinus rhythm with a ventricular rate of 77. The MS, QRS, QT intervals are within normal limits. There are no ST-T wave changes indicative of ischemic or injury pattern. No evidence of right heart strain. Interpreted by me. Imaging: Chest x-ray PA and lateral; the cardiac mediastinal silhouette is unremarkable. No evidence of infiltrate or pneumothorax. Bilateral lower lung atelectasis. No other acute cardiopulmonary disease process noted. Interpreted by me. Procedures: Emergency department course: IV placed. She was placed on a reverberatory skimmer. She was placed on 2 L by nasal cannula. Pulse oximetries in the high 90s on 2 L by nasal cannula. Chest x-ray and EKG performed. 6:50 p.m., patient re-evaluated. Sleeping but easily arousable. Pulse oximetry on 2 L by nasal cannula is 96%. 7:15 p.m., the patient has been on room air oxygen. Pulse oximetry is 90-93%. [address] [place] [address] nursing staff contacted. They state her baseline on room air is 89-90% . The patient has no complaints. She has been up and ambulatory. She is not dyspneic. She feels comfortable being transferred back to [address] [place] [address]. Return to emergency department precautions were reviewed with the patient and the nursing staff at [address] [place] [address]. She was transferred in stable and improved condition. Differential Diagnosis: The differential diagnosis on this patient includes but is not limited to medication reaction, transient reactive airway disease, CHF, pulmonary embolism , acute coronary syndrome. This represents a partial list of diagnoses considered. These considerations are based on history, physical exam, past history, reassessment and diagnostic testing. Smoking Status: Never smoked Constitutional: Initial Vital Signs Temperature (C) 36.5 C 06/05/16 16:47 Heart Rate 82 06/05/16 16:47 Respiratory Rate 16 06/05/16 16:47 Blood Pressure 169/121 H 06/05/16 16:47 O2 Sat (%) 94 06/05/16 16:47 O2 Delivery Mode Room Air O2 (L/minute) 2 Allergies/Adverse Reactions: aripiprazole [From Abilify] Allergy (Verified 06/03/16 14:00) latex [Latex] Allergy (Verified 06/03/16 13:42) povidone-iodine [From Betadine] Allergy (Verified 06/03/16 13:42) soap [From Betadine] Allergy (Verified 06/03/16 13:42) Home Medications: Medication Instructions Recorded traZODone [traZODone 150MG (*)] 37.5 mg PO HS PRN 02/08/10 ARIPiprazole [Abilify 5 mg (*)] 5 mg PO DAILY 06/03/16 Fluticasone Nasal [Flonase Nasal 1 sprays NASAL DAILY 06/03/16 [place] (RX)] Hydrocodone/Acetaminophen [[place] 1 - 2 tab PO Q2-3PRN PRN 06/03/16 5/325 (*)] Medical Decision Making - Data Points Laboratory Results: Laboratory Results 06/05/16 17:45 06/05/16 17:45 06/05/16 06/05/16 18:20 17:45 WBC 8.39 10^3/uL (3.80-9.50) RBC 4.32 10^6/uL (4.18-5.33) Hgb 14.0 g/dL (12.6-16.3) Hct 41.9 % (38.0-47.0) MCV 97.0 fL (81.5-99.8) MCH 32.4 pg (27.9-34.1) MCHC 33.4 g/dL (32.4-36.7) RDW 13.3 % (11.5-15.2) Plt Count 265 10^3/uL (150-400) MPV 9.1 fL (8.7-11.7) Neut % (Auto) 68.2 % (39.3-74.2) Lymph % (Auto) 19.7 % (15.0-45.0) [place] % (Auto) 9.1 % (4.5-13.0) Eos % (Auto) 1.9 % (0.6-7.6) Baso % (Auto) 0.7 % (0.3-1.7) Nucleat RBC Rel Count 0.0 % (0.0-0.2) Absolute Neuts (auto) 5.73 10^3/uL (1.70-6.50) Absolute Lymphs (auto) 1.65 10^3/uL (1.00-3.00) Absolute Monos (auto) 0.76 10^3/uL (0.30-0.80) Absolute Eos (auto) 0.16 10^3/uL (0.03-0.40) Absolute Basos (auto) 0.06 10^3/uL (0.02-0.10) Absolute Nucleated RBC 0.00 10^3/uL (0-0.01) Immature Gran % 0.4 % (0.0-1.1) Immature Gran # 0.03 10^3/uL (0.00-0.10) PT 14.0 SEC REJ (12.0-15.0) INR 1.09 Not Reported (0.83-1.16) APTT 26.5 SEC REJ (23.0-38.0) D-Dimer < 0.27 ug/mLFEU REJ (0.00-0.50) Sodium 140 mEq/L (134-144) Potassium 4.0 mEq/L (3.5-5.2) Chloride 109 mEq/L (97-110) Carbon Dioxide 24 mEq/l (22-31) Anion Gap 7 mEq/L (8-16) BUN 15 mg/dL (7-23) Creatinine 0.6 mg/dL (0.6-1.0) Estimated GFR > 60 Glucose 108 H mg/dL (70-100) Calcium 9.0 mg/dL (8.5-10.4) Troponin I < 0.012 ng/mL (0-0.034) NT-Pro-B Natriuret Pep 84 pg/mL (0-125) Departure - Departure Disposition: Home, Routine, Self-Care Clinical Impression: Hypoxia Condition: Good Instructions: Hypoxia (ED) Additional Instructions: Read and follow provided instructions. Your to be on pulse oximetry tonight and reassessed in the morning by the house physician. Return to the emergency department for lower pulse oximetry readings, shortness of breath, chest pain or other serious concerns. Referrals: [place] STATE,. [Primary Care Provider] - As per Instructions
[2016-06-05 17:58] LABS: % IMMATURE GRANULYOCYTES 0.4 % (0.0-1.1); ABSOLUTE IMMATURE GRANULOCYTES 0.03 10^3/uL (0.00-0.10); ADD DIFF? NO; ADD MORPH? NO; ADD SCAN? NO; ATYPICAL LYMPHOCYTE FLAG 0 (0-99); FRAGMENT RBC FLAG 20 (0-99); HEMATOCRIT 41.9 % (38.0-47.0); LEFT SHIFT FLG 0 (0-99); LIPEMIA HEMOLYSIS FLAG 80 (0-99); MEAN CELL HEMOGLOBIN 32.4 pg (27.9-34.1); MEAN CELL HEMOGLOBIN CONCENTR. 33.4 g/dL (32.4-36.7); MEAN PLATELET VOLUME 9.1 fL (8.7-11.7); PLATELET CLUMPS FLAG 0 (0-99); PLATELET COUNT 265 10^3/uL (150-400); RED BLOOD CELL COUNT 4.32 10^6/uL (4.18-5.33); RED CELL DISTRIBUTION WIDTH 13.3 % (11.5-15.2)
--- NOTE | 2016-06-05 18:06 | CPEKG ---
Heart Rate: 77 RR Interval: 779 P-R Interval: 196 QRSD Interval: 92 QT Interval: 416 QTC Interval: 471 P [place]: 41 QRS [place]: 0 T Wave [place]: 45 EKG Severity - NORMAL ECG - EKG Impression: SINUS RHYTHM Electronically Signed By: Mohan Bejarano 06-Jun-2016 01:03:41
--- NOTE | 2016-06-05 18:21 | DX ---
PA and Lateral Chest History: Chest pain and hypoxia in a 70-year-old female; no previous studies are available for compar row[place]. Findings: The heart and mediastinum are normal. Pulmonary vascularity is normal. Linear opacities ove r the lower lungs bilaterally presumably represent atelectasis.. There is no pleural fluid. A pneumot horax is not identified. Impression: Bilateral lower lung opacities are probably atelectasis rather than pneumonia.
[2016-06-05 18:34] LABS: ANION GAP 7 mEq/L (8-16); CARBON DIOXIDE 24 mEq/l (22-31); CHLORIDE 109 mEq/L (97-110); CREATININE 0.6 mg/dL (0.6-1.0); GLOMERULAR FILTRATION RATE > 60; GLUCOSE 108 mg/dL (70-100); SODIUM 140 mEq/L (134-144)
[2016-06-05 18:42] LABS: INR 1.09 (0.83-1.16)
[2016-06-05 18:43] LABS: APTT 26.5 SEC (23.0-38.0)
[2016-06-05 18:46] LABS: TROPONIN I < 0.012 ng/mL (0-0.034)
[2016-06-05 20:10] VITALS: BP 135/79; PULSE 84; RESP 18; TEMP 97.9; O2SAT 92
--- NOTE | 2016-06-06 08:58 | CPEKG ---
Heart Rate: 73 RR Interval: 822 P-R Interval: 200 QRSD Interval: 96 QT Interval: 400 QTC Interval: 441 P [place]: 44 QRS [place]: 9 T Wave [place]: 51 EKG Severity - NORMAL ECG - EKG Impression: SINUS RHYTHM Electronically Signed By: Pepe Shipley 09-Jun-2016 22:22:13
== END 2016-06-05 20:53 | disposition home or self-care (01) ==
LOC: EDUNIT#
DX: R09.02 Hypoxemia (principal); Z87.891 Personal history of nicotine dependence; Z91.040 Latex allergy status